=== PATIENT | female | born 1930 | race Caucasian/White ===

== ENCOUNTER → 2016-08-25 | Outpatient (CLI) | payer MEDICARE ==
[~2016-08-25] MED LIST: 50% DEXTRO25 GM/50 M IV; AMLODIPINE BESYL5 MG PO; AMLODIPINE10 MG PO; ASPIRIN ADULT L81 M1 PO; ASPIRIN ADULT L81 M3 PO; ASPIRIN E.C.325 MG PO; ASPIRIN81 M1 PO; BACLOFEN10 MG PO; CARAFATE1 G1 PO; DUONEB 3 MG/3 ML3 M1 INH; DUONEB 3 MG/3 ML3 ML INH; FERROUS SULFAT325 M1 PO; IS; K + POTASSIUM20 MEQ PO; KLOR-CON M2020 MEQ PO; LEVOFLOXACIN500 MG PO; LISINOPRIL5 MG PO; METFORMIN HYDR500 M1 PO; METFORMIN500 MG PO; MUCINEX600 MG PO; Metformin Hydr500 MG PO; NOVOLIN R100 U/ML SC; NS IV; PAXIL10 MG PO; PLAVIX75 MG PO; PRAVACHOL40 MG PO; PROTONIX40 MG PO; ROBITUSSIN5 ML PO; SIMVASTATIN10 MG PO; SIMVASTATIN40 MG PO; TENORMIN25 MG PO; TYLENOL500 MG PO; TYLENOL650 M1 PO; VOLTAREN1% TP; ZETIA10 MG PO; ZOCOR40 MG PO
== END | disposition home or self-care (01) ==
LOC: RAD 17:07
DX: R06.02 Shortness of breath (principal); R05 Cough; I10 Essential (primary) hypertension

== ENCOUNTER → 2017-09-15 | Outpatient (CLI) | payer MEDICARE ==
[~2017-09-15] MED LIST changes: +NORVASC5 MG PO; +PLAVIX75 M1 PO; +PRILOSEC20 M1 PO
--- NOTE | ~2017-09-15 | ST ---
[place], [place] EXERCISE STRESS TEST REPORT [id number] UN[facility] #: [id number] ROOM: DOCTOR: MAXIME VALERIO MD BIRTHDATE: [birth year] DOS: 09/15/2017 REFERRED BY: Dr. Aubrie Velez. INDICATIONS: Chest discomfort. PROCEDURE: The patient was given a rapid infusion of regadenoson 0.4 mg intravenously followed by a saline flush. She had shortness of breath and right chest discomfort, all of which resolved spontaneously. She had a normal heart rate increased from 62 at rest to 83 post-infusion. No diagnostic ST or T-wave changes were seen. Forty seconds after the infusion of regadenoson, she was given radionuclide intravenously. IMPRESSION: 1. Well tolerated infusion of regadenoson. 2. Radionuclide administered. Please see the separate imaging report for further details of the patient's stress test results. MAXIME VALERIO MD CM:STRESS:EXERCISE STRESS TEST REPORT [id number] 1202 MAXIME VALERIO MD
== END | disposition home or self-care (01) ==
LOC: CARD 02:04
DX: I20.8 Other forms of angina pectoris (principal)

== ENCOUNTER → 2017-09-19 | Outpatient (CLI) | payer MEDICARE | END | disposition home or self-care (01) | LOC: MAMMO 09-05 16:40 | DX: Z12.31 Encounter for screening mammogram for malignant neoplasm of breast (principal) ==

== ENCOUNTER → 2017-11-02 | Outpatient (CLI) | payer MEDICARE | END | disposition home or self-care (01) | LOC: CT 13:34 | DX: S09.90XA Unspecified injury of head, initial encounter (principal); W19.XXXA Unspecified fall, initial encounter; X58.XXXA Exposure to other specified factors, initial encounter; Y93.89 Activity, other specified; Y92.89 Other specified places as the place of occurrence of the external cause; Y99.8 Other external cause status ==

== ENCOUNTER 2017-11-09 13:56 | Inpatient (IN) | payer MEDICARE ==
[~2017-11-09] VITALS: Ht 144.8 cm; Wt 52.8 kg
[~2017-11-09 13:56] MED LIST changes: -BACLOFEN10 MG PO; +BACLOFEN20 M1 PO
[2017-11-09 13:57] VITALS: BP 166/80
[2017-11-09 14:36] LABS: BASO % 0.4 % (0.0-1.0); EOS % 0.1 % (1.0-4.0); HEMATOCRIT 41.7 % (37.0-47.0); HEMOGLOBIN 13.4 g/dl (12.0-16.0); LYMPH # 1.1 10*3/uL (1.3-4.4); MEAN CELL VOLUME 87.8 fl (81.0-99.0); MEAN CORPUSCULAR HGB 28.2 pg (27.0-31.0); MEAN CORPUSCULAR HGB CONC 32.1 g/dl (33.0-37.0); MEAN PLATELET VOLUME 10.3 fl (9.6-12.3); MONO # 0.3 10*3/uL (0.1-1.0); NEUT # 5.3 10*3/uL (2.3-7.9); NEUT % 78.9 % (47.0-73.0); PLATELET COUNT AUTOMATED 355 10*3/uL (130-400); RED BLOOD COUNT 4.75 10*6/uL (4.10-5.10); RED CELL DISTRI WIDTH 12.7 % (0-14.5); WHITE BLOOD COUNT 6.7 10*3/uL (4.8-10.8)
[2017-11-09 14:45] LABS: ACT PARTIAL THROMBO TIME 21.1 SECONDS (20.8-31.5); INTERNATIONAL NORM RATIO 0.9 (2.0-3.5)
[2017-11-09 14:52] LABS: ALBUMIN 3.4 gm/dl (3.1-4.5); ALKALINE PHOSPHATASE 83 U/L (45-117); BUN 12 mg/dl (7-24); CHLORIDE 104 mmol/L (98-107); CREATININE 1.01 mg/dL (0.55-1.02); LIPASE 201 U/L (73-393); POTASSIUM 3.5 mmol/L (3.5-5.1); SGOT/AST 20 IU/L (3-35); SGPT/ALT 16 U/L (12-78); SODIUM 139 mmol/L (136-145); TOTAL PROTEIN 8.2 gm/dL (6.4-8.2)
[2017-11-09 14:53] LABS: TROPONIN I < 0.015 ng/ml (<0.045)
[2017-11-09 16:00] VITALS: BP 136/57
[2017-11-09 20:00] VITALS: BP 121/57
[2017-11-10] VITALS: BP 102/48
[2017-11-10 06:26] LABS: BASO % 0.7 % (0.0-1.0); EOS # 0.1 10*3/uL (0.0-0.4); EOS % 1.8 % (1.0-4.0); HEMATOCRIT 37.2 % (37.0-47.0); HEMOGLOBIN 11.5 g/dl (12.0-16.0); LYMPH # 1.9 10*3/uL (1.3-4.4); LYMPH % 33.8 % (27.0-41.0); MEAN CELL VOLUME 90.7 fl (81.0-99.0); MEAN CORPUSCULAR HGB CONC 30.9 g/dl (33.0-37.0); MEAN PLATELET VOLUME 10.3 fl (9.6-12.3); MONO # 0.5 10*3/uL (0.1-1.0); MONO % 8.1 % (3.0-9.0); NEUT # 3.1 10*3/uL (2.3-7.9); NEUT % 55.2 % (47.0-73.0); PLATELET COUNT AUTOMATED 308 10*3/uL (130-400); RED CELL DISTRI WIDTH 12.8 % (0-14.5); WHITE BLOOD COUNT 5.5 10*3/uL (4.8-10.8)
[2017-11-10 07:00] LABS: BUN 9 mg/dl (7-24); CHLORIDE 109 mmol/L (98-107); CHOLESTEROL 130 mg/dL (<200); CREATININE 0.86 mg/dL (0.55-1.02); HDL CHOLESTEROL 34 mg/dl (40-60); LDL CHOLESTEROL 66 mg/dL (9-159); PHOSPHOROUS 2.2 mg/dL (2.5-4.9); POTASSIUM 3.4 mmol/L (3.5-5.1); SODIUM 143 mmol/L (136-145); TRIGLYCERIDES 151 mg/dl (<150); VLDL CHOLESTEROL 30 mg/dL (6-40)
[2017-11-10 07:06] LABS: THYROID STIM HORMONE (HS) 0.914 uIU/ml (0.358-4.75)
[2017-11-10 07:52] LABS: VITAMIN D, 25-HYDROXY 27.4 ng/mL (30-100)
[2017-11-10 08:00] VITALS: BP 149/60; BP 99/66
[2017-11-10] MEDS ORDERED: NORVASC5 MG PO (08:13)
[2017-11-10] MEDS ORDERED: SIMVASTATIN40 MG PO (08:14)
[2017-11-10 13:00] VITALS: BP 135/50
== END 2017-11-10 15:32 | disposition home or self-care (01) | DRG 392 ==
LOC: ED 13:56 → EDHOLD 15:09 → 5E 15:09
PROVIDERS: Emergency Medicine; Student in an Organized Health Care Education/Training Program
DX: K52.9 Noninfective gastroenteritis and colitis, unspecified (principal); E11.65 Type 2 diabetes mellitus with hyperglycemia; I69.359 Hemiplegia and hemiparesis following cerebral infarction affecting unspecified side; R26.2 Difficulty in walking, not elsewhere classified; D72.810 Lymphocytopenia; I10 Essential (primary) hypertension; E78.5 Hyperlipidemia, unspecified; Z79.899 Other long term (current) drug therapy; Z88.5 Allergy status to narcotic agent; Z88.8 Allergy status to other drugs, medicaments and biological substances; Z91.041 Radiographic dye allergy status; Z91.040 Latex allergy status; Z90.49 Acquired absence of other specified parts of digestive tract; Z82.49 Family history of ischemic heart disease and other diseases of the circulatory system; Z82.3 Family history of stroke; Z80.9 Family history of malignant neoplasm, unspecified; Z87.19 Personal history of other diseases of the digestive system

== ENCOUNTER 2018-01-07 10:29 | Emergency (ER) | payer MEDICARE ==
[~2018-01-07] VITALS: Ht 144.7 cm; Wt 49.9 kg
[2018-01-07] MEDS ORDERED: METFORMIN750 MG PO (10:36)
[2018-01-07 10:55] LABS: BASO # 0.1 10*3/uL (0.0-0.1); BASO % 0.7 % (0.0-1.0); EOS # 0.1 10*3/uL (0.0-0.4); EOS % 1.7 % (1.0-4.0); HEMATOCRIT 41.8 % (37.0-47.0); LYMPH # 3.4 10*3/uL (1.3-4.4); LYMPH % 41.5 % (27.0-41.0); MEAN CELL VOLUME 88.2 fl (81.0-99.0); MEAN CORPUSCULAR HGB 27.4 pg (27.0-31.0); MEAN CORPUSCULAR HGB CONC 31.1 g/dl (33.0-37.0); MEAN PLATELET VOLUME 10.8 fl (9.6-12.3); MONO # 0.4 10*3/uL (0.1-1.0); MONO % 5.3 % (3.0-9.0); NEUT # 4.1 10*3/uL (2.3-7.9); NEUT % 50.7 % (47.0-73.0); PLATELET COUNT AUTOMATED 276 10*3/uL (130-400); RED BLOOD COUNT 4.74 10*6/uL (4.10-5.10); RED CELL DISTRI WIDTH 13.4 % (0-14.5); WHITE BLOOD COUNT 8.2 10*3/uL (4.8-10.8)
[2018-01-07 11:03] LABS: ACT PARTIAL THROMBO TIME 24.1 SECONDS (20.8-31.5); INTERNATIONAL NORM RATIO 0.9 (2.0-3.5)
[2018-01-07 11:11] LABS: ALBUMIN 3.7 gm/dl (3.1-4.5); ALKALINE PHOSPHATASE 74 U/L (45-117); BUN 11 mg/dl (7-24); CHLORIDE 105 mmol/L (98-107); CREATININE 0.97 mg/dL (0.55-1.02); POTASSIUM 4.1 mmol/L (3.5-5.1); SGOT/AST 24 IU/L (3-35); SGPT/ALT 18 U/L (12-78); SODIUM 140 mmol/L (136-145); TOTAL PROTEIN 8.3 gm/dL (6.4-8.2); TROPONIN I < 0.015 ng/ml (<0.045)
[2018-01-07 11:39] LABS: BILIRUBIN NEGATIVE (NEGATIVE); BLOOD NEGATIVE (NEGATIVE); CLARITY CLEAR (CLEAR); COLOR YELLOW (YELLOW); GLUCOSE NEGATIVE (NEGATIVE); KETONE NEGATIVE (NEGATIVE); LEUKO ESTERASE NEGATIVE (NEGATIVE); NITRITE NEGATIVE (NEGATIVE); PH 7.5 (5.0-9.0); SPECIFIC GRAVITY 1.015 (1.005-1.030); UROBILINOGEN 0.2 E.U./dl (0.2-1.0)
== END 2018-01-07 12:35 | disposition home or self-care (01) ==
LOC: ED 10:29
PROVIDERS: Emergency Medicine
DX: R53.1 Weakness (principal); I10 Essential (primary) hypertension; E11.9 Type 2 diabetes mellitus without complications; Z91.040 Latex allergy status; Z91.041 Radiographic dye allergy status; Z88.6 Allergy status to analgesic agent; Z88.8 Allergy status to other drugs, medicaments and biological substances; Z79.899 Other long term (current) drug therapy; Z86.73 Personal history of transient ischemic attack (TIA), and cerebral infarction without residual deficits; Z90.49 Acquired absence of other specified parts of digestive tract

== ENCOUNTER 2018-02-06 15:56 | Emergency (ER) | payer MEDICARE ==
[~2018-02-06] VITALS: Ht 1 cm; Wt 54.4 kg
[~2018-02-06 15:56] MED LIST changes: +METFORMIN750 MG PO
[2018-02-06 16:51] LABS: BASO % 0.6 % (0.0-1.0); EOS # 0.1 10*3/uL (0.0-0.4); EOS % 1.4 % (1.0-4.0); HEMATOCRIT 44.3 % (37.0-47.0); HEMOGLOBIN 13.4 g/dl (12.0-16.0); LYMPH # 2.7 10*3/uL (1.3-4.4); LYMPH % 38.7 % (27.0-41.0); MEAN CELL VOLUME 88.6 fl (81.0-99.0); MEAN CORPUSCULAR HGB 26.8 pg (27.0-31.0); MEAN CORPUSCULAR HGB CONC 30.2 g/dl (33.0-37.0); MEAN PLATELET VOLUME 10.8 fl (9.6-12.3); MONO # 0.5 10*3/uL (0.1-1.0); MONO % 6.8 % (3.0-9.0); NEUT # 3.7 10*3/uL (2.3-7.9); NEUT % 52.4 % (47.0-73.0); PLATELET COUNT AUTOMATED 291 10*3/uL (130-400); RED CELL DISTRI WIDTH 14.3 % (0-14.5)
[2018-02-06 17:00] LABS: ACT PARTIAL THROMBO TIME 23.5 SECONDS (20.8-31.5); INTERNATIONAL NORM RATIO 0.9 (2.0-3.5)
[2018-02-06 17:07] LABS: ALBUMIN 3.7 gm/dl (3.1-4.5); ALKALINE PHOSPHATASE 76 U/L (45-117); BUN 12 mg/dl (7-24); CHLORIDE 109 mmol/L (98-107); CREATININE 0.89 mg/dL (0.55-1.02); POTASSIUM 4.4 mmol/L (3.5-5.1); SGOT/AST 19 IU/L (3-35); SGPT/ALT 16 U/L (12-78); SODIUM 143 mmol/L (136-145); TOTAL PROTEIN 8.2 gm/dL (6.4-8.2)
[2018-02-06 17:10] LABS: TROPONIN I < 0.015 ng/ml (<0.045)
[2018-02-06 17:41] LABS: BILIRUBIN NEGATIVE (NEGATIVE); BLOOD NEGATIVE (NEGATIVE); CLARITY CLEAR (CLEAR); COLOR YELLOW (YELLOW); GLUCOSE NEGATIVE (NEGATIVE); KETONE NEGATIVE (NEGATIVE); LEUKO ESTERASE 2+ (NEGATIVE); NITRITE NEGATIVE (NEGATIVE); PH 6.5 (5.0-9.0); SPECIFIC GRAVITY 1.015 (1.005-1.030)
== END 2018-02-06 20:05 | disposition short-term general hospital (02) ==
LOC: ED 15:56
PROVIDERS: Emergency Medicine
DX: I63.9 Cerebral infarction, unspecified (principal); R29.810 Facial weakness; R42 Dizziness and giddiness; I10 Essential (primary) hypertension; E11.9 Type 2 diabetes mellitus without complications; E78.5 Hyperlipidemia, unspecified; Z91.040 Latex allergy status; Z88.6 Allergy status to analgesic agent; Z88.8 Allergy status to other drugs, medicaments and biological substances; Z79.899 Other long term (current) drug therapy; Z86.73 Personal history of transient ischemic attack (TIA), and cerebral infarction without residual deficits; Z86.718 Personal history of other venous thrombosis and embolism

== ENCOUNTER → 2018-02-27 | Outpatient (CLI) | payer MEDICARE ==
--- NOTE | ~2018-02-27 | EEG ---
[place], [place] ELECTROENCEPHALOGRAM REPORT NAME: KEN DESOUZA UNIT #: [id number] ROOM: DOCTOR: JACOB BLAND MD, JR DOS: 02/27/2018 FINDINGS: This 87-year-old woman on Zestril, Plavix, baclofen, atenolol, Carafate, metformin, Lipitor, vitamin D and fish oil displayed the following underlying rhythms: slightly disorganized, slightly asynchronous, 8 Hz, 20-30 microvolt alpha rhythms in both posterior regions 16 Hz, 10 microvolt beta rhythms were noted in both precentral regions. There was symmetrical attenuation of the posterior alpha rhythms with eye opening. Hyperventilation was not performed. There was no significant driving to photic stimulation. The patient did become drowsy, progressing uneventfully through stage I of somnolence. Throughout this recording, there were no focal abnormalities or epileptiform discharges. IMPRESSION: Normal awake and drowsy EEG. Clinical correlation was highly advised. JACOB BLAND MD CM:EEG:ELECTROENCEPHALOGRAM REPORT [id number] 1609 JACOB BLAND MD, JR
== END | disposition home or self-care (01) ==
LOC: CARD 10:39 → CP 12:00 → CARD 02-28 09:30
DX: I08.1 Rheumatic disorders of both mitral and tricuspid valves (principal); Z79.899 Other long term (current) drug therapy

== ENCOUNTER 2018-06-24 11:02 | Emergency (ER) | payer MEDICARE ==
--- NOTE | ~2018-06-24 | EKG ---
[place], [place] ELECTROCARDIOGRAM REPORT NAME: KEN DESOUZA UNIT #: [id number] ROOM: DOCTOR: AIDEN DRAFT REPORT BIRTHDATE: [birth year] [facility] Test Date: 2018-06-24 Test Time: 11:44:49 Pat Name: KEN DESOUZA Department: Room: Gender: F Arcade Attendant: : 1930 Requested By: AMAYA ROSENBAUM Order Number: [id number] Reading MD: Measurements Intervals [place] Rate: 83 P: 63 SC: 166 QRS: 27 QRSD: 86 T: 56 QT: 376 QTc: 442 Interpretive Statements Sinus rhythm No previous ECG available for comparison CM:EKGRPT:ELECTROCARDIOGRAM REPORT [id number] 0846 AMAYA WOLFE DRAFT REPORT AMAYA ROSENBAUM MD
[2018-06-24 11:56] LABS: BASO # 0.1 10*3/uL (0.0-0.1); BASO % 0.8 % (0.0-1.0); EOS # 0.1 10*3/uL (0.0-0.4); EOS % 1.1 % (1.0-4.0); HEMATOCRIT 43.5 % (37.0-47.0); HEMOGLOBIN 13.9 g/dl (12.0-16.0); LYMPH # 2.4 10*3/uL (1.3-4.4); LYMPH % 29.9 % (27.0-41.0); MEAN CELL VOLUME 88.4 fl (81.0-99.0); MEAN CORPUSCULAR HGB 28.3 pg (27.0-31.0); MEAN PLATELET VOLUME 10.3 fl (9.6-12.3); MONO # 0.6 10*3/uL (0.1-1.0); MONO % 7.9 % (3.0-9.0); NEUT # 4.8 10*3/uL (2.3-7.9); NEUT % 60.2 % (47.0-73.0); PLATELET COUNT AUTOMATED 302 10*3/uL (130-400); RED BLOOD COUNT 4.92 10*6/uL (4.10-5.10); RED CELL DISTRI WIDTH 13.9 % (0-14.5)
[2018-06-24 12:05] LABS: ACT PARTIAL THROMBO TIME 23.2 SECONDS (20.8-31.5); INTERNATIONAL NORM RATIO 0.9 (2.0-3.5)
[2018-06-24 12:14] LABS: BUN 14 mg/dl (7-24); CHLORIDE 104 mmol/L (98-107); CREATININE 0.92 mg/dL (0.55-1.02); POTASSIUM 4.2 mmol/L (3.5-5.1); SODIUM 137 mmol/L (136-145)
[2018-06-24 12:15] LABS: TROPONIN I < 0.015 ng/ml (<0.045)
== END 2018-06-24 12:40 | disposition home or self-care (01) ==
LOC: ED 11:02
PROVIDERS: Emergency Medicine
DX: R53.1 Weakness (principal); R25.2 Cramp and spasm; E78.5 Hyperlipidemia, unspecified; I10 Essential (primary) hypertension; E11.9 Type 2 diabetes mellitus without complications; Z86.73 Personal history of transient ischemic attack (TIA), and cerebral infarction without residual deficits; Z90.49 Acquired absence of other specified parts of digestive tract; Z79.84 Long term (current) use of oral hypoglycemic drugs; Z79.899 Other long term (current) drug therapy; Z88.8 Allergy status to other drugs, medicaments and biological substances; Z88.5 Allergy status to narcotic agent; Z91.041 Radiographic dye allergy status; Z91.040 Latex allergy status

== ENCOUNTER 2018-07-24 21:41 | Inpatient (IN) | payer MEDICARE ==
[~2018-07-24] VITALS: Ht 149.8 cm; Wt 50.0 kg
--- NOTE | ~2018-07-24 | PROC NOTE ---
[place], [place] PROCEDURE NOTE NAME: KEN DESOUZA UNIT #: [id number] ROOM: 524 DOCTOR: RANDY PAEZ MD BIRTHDATE: [birth year] DOS: 07/26/2018 PREOPERATIVE DIAGNOSIS: Lower GI bleed. POSTOPERATIVE DIAGNOSIS: Sigmoid diverticulosis. PROCEDURE: Colonoscopy. ENDOSCOPIST: Randy Paez MD SENIOR BUSINESS OBJECTS DEVELOPER: DOLORES. ANESTHESIA: MAC. INDICATIONS: This is an 87-year-old lady who was admitted with lower GI bleed. She is here for a colonoscopy. The procedure and its complications were explained to the patient in detail preoperatively. Complications that were discussed included but were not limited to bleeding, missed lesions, colon perforation, and prolonged pain. She agreed to proceed. DESCRIPTION OF PROCEDURE: After identifying the patient, the patient was brought to the endoscopy suite and placed in the left lateral position. After IV sedation was administered by the anesthesia team, a time-out procedure was called. A digital rectal exam was performed, which showed some old blood on the examining finger. No active bleeding was seen. Adult colonoscope was now introduced into the anal canal and advanced sequentially into the rectum, sigmoid colon, descending colon, transverse colon and ascending colon up to the cecum. Upon reaching the cecum, the scope was withdrawn. There was found to be old blood and stool mixed in the entirety of the colon, but no active bleeding or source of bleeding that could be visualized. The mucosa was completely normal. There was sigmoid diverticulosis without any active bleeding that was identified in the region of the sigmoid colon. The scope was then withdrawn. There was found to be nonbleeding internal hemorrhoids that were visualized on retroflexion of the scope in the rectum. The scope was then withdrawn and the patient was brought back to the recovery room in stable fashion. The patient will be monitored closely for further bleeding and if needed, a bleeding scan will be ordered in order to see if there was any bleeding from the small intestine, which seems to be the most likely source at this point. These findings were discussed with the patient's in the recovery room. [place], [place] PROCEDURE NOTE NAME: KEN DESOUZA UNIT #: [id number] ROOM: 524 DOCTOR: RANDY PAEZ MD BIRTHDATE: [birth year] Randy Paez MD CM:EVELYN:PROCEDURE NOTE [id number] RANDY PAEZ MD
[2018-07-24 22:02] VITALS: BP 139/59
[2018-07-24 22:30] LABS: BASO % 0.5 % (0.0-1.0); EOS # 0.2 10*3/uL (0.0-0.4); HEMATOCRIT 32.2 % (37.0-47.0); HEMOGLOBIN 10.3 g/dl (12.0-16.0); LYMPH # 2.5 10*3/uL (1.3-4.4); LYMPH % 33.5 % (27.0-41.0); MEAN CELL VOLUME 91.2 fl (81.0-99.0); MEAN CORPUSCULAR HGB 29.2 pg (27.0-31.0); MEAN PLATELET VOLUME 10.9 fl (9.6-12.3); MONO # 0.5 10*3/uL (0.1-1.0); NEUT # 4.2 10*3/uL (2.3-7.9); NEUT % 56.7 % (47.0-73.0); PLATELET COUNT AUTOMATED 231 10*3/uL (130-400); RED BLOOD COUNT 3.53 10*6/uL (4.10-5.10); RED CELL DISTRI WIDTH 13.7 % (0-14.5); WHITE BLOOD COUNT 7.4 10*3/uL (4.8-10.8)
[2018-07-24 22:43] LABS: ACT PARTIAL THROMBO TIME 22.7 SECONDS (20.8-31.5)
[2018-07-24 22:44] LABS: ALBUMIN 3.1 gm/dl (3.1-4.5); CREATININE 1.22 mg/dL (0.55-1.02); POTASSIUM 4.1 mmol/L (3.5-5.1); TOTAL PROTEIN 6.7 gm/dL (6.4-8.2)
[2018-07-25 00:13] VITALS: BP 166/65
[2018-07-25] MEDS ORDERED: ATORVASTATIN CA20 M1 PO (03:27)
[2018-07-25] MEDS ORDERED: CARVEDILOL12.5 MG PO (03:27)
[2018-07-25] MEDS ORDERED: FISH OIL 1,0001 EAC3 PO ×2 (03:28→14:32)
[2018-07-25 03:34] LABS: BILIRUBIN NEGATIVE (NEGATIVE); BLOOD NEGATIVE (NEGATIVE); CLARITY SL CLOUDY (CLEAR); COLOR YELLOW (YELLOW); GLUCOSE NEGATIVE (NEGATIVE); KETONE TRACE (NEGATIVE); LEUKO ESTERASE 1+ (NEGATIVE); NITRITE NEGATIVE (NEGATIVE); SPECIFIC GRAVITY >= 1.030 (1.005-1.030); UROBILINOGEN 0.2 E.U./dl (0.2-1.0)
[2018-07-25 03:45] LABS: EPITHELIAL CELLS 30-35
[2018-07-25 03:46] LABS: BACTERIA TRACE; WBC 16-20 wbc/hpf (0-5)
[2018-07-25 04:00] VITALS: BP 130/60
[2018-07-25 07:10] LABS: BASO % 0.5 % (0.0-1.0); EOS # 0.1 10*3/uL (0.0-0.4); EOS % 1.5 % (1.0-4.0); HEMATOCRIT 29.4 % (37.0-47.0); HEMOGLOBIN 9.4 g/dl (12.0-16.0); LYMPH # 2.1 10*3/uL (1.3-4.4); LYMPH % 35.8 % (27.0-41.0); MEAN CELL VOLUME 90.2 fl (81.0-99.0); MEAN CORPUSCULAR HGB 28.8 pg (27.0-31.0); MEAN PLATELET VOLUME 10.6 fl (9.6-12.3); MONO # 0.4 10*3/uL (0.1-1.0); MONO % 6.6 % (3.0-9.0); NEUT # 3.3 10*3/uL (2.3-7.9); NEUT % 55.4 % (47.0-73.0); PLATELET COUNT AUTOMATED 220 10*3/uL (130-400); RED BLOOD COUNT 3.26 10*6/uL (4.10-5.10); RED CELL DISTRI WIDTH 13.5 % (0-14.5)
[2018-07-25 07:46] LABS: ALBUMIN 2.8 gm/dl (3.1-4.5); BUN 20 mg/dl (7-24); CHLORIDE 107 mmol/L (98-107); CHOLESTEROL 122 mg/dL (<200); CREATININE 0.85 mg/dL (0.55-1.02); PHOSPHOROUS 3.1 mg/dL (2.5-4.9); POTASSIUM 3.9 mmol/L (3.5-5.1); SGOT/AST 14 IU/L (3-35); SGPT/ALT 10 U/L (12-78); SODIUM 138 mmol/L (136-145); TRIGLYCERIDES 103 mg/dl (<150); VLDL CHOLESTEROL 21 mg/dL (6-40)
[2018-07-25 07:53] LABS: ALKALINE PHOSPHATASE 61 U/L (45-117); FREE T4 1.13 ng/dl (0.76-1.46); HDL CHOLESTEROL 37 mg/dl (40-60); LDL CHOLESTEROL 64 mg/dL (9-159); TOTAL PROTEIN 6.4 gm/dL (6.4-8.2)
[2018-07-25 08:00] VITALS: BP 172/88
[2018-07-25 08:42] LABS: VITAMIN D, 25-HYDROXY 71.8 ng/mL (30-100)
[2018-07-25 10:45] VITALS: BP 150/80
[2018-07-25 12:49] LABS: BASO % 0.6 % (0.0-1.0); EOS # 0.1 10*3/uL (0.0-0.4); EOS % 1.9 % (1.0-4.0); LYMPH # 2.5 10*3/uL (1.3-4.4); LYMPH % 39.7 % (27.0-41.0); MEAN CELL VOLUME 90.7 fl (81.0-99.0); MEAN CORPUSCULAR HGB 28.3 pg (27.0-31.0); MEAN CORPUSCULAR HGB CONC 31.3 g/dl (33.0-37.0); MEAN PLATELET VOLUME 10.9 fl (9.6-12.3); MONO # 0.5 10*3/uL (0.1-1.0); MONO % 7.5 % (3.0-9.0); NEUT # 3.1 10*3/uL (2.3-7.9); PLATELET COUNT AUTOMATED 226 10*3/uL (130-400); RED BLOOD COUNT 3.53 10*6/uL (4.10-5.10); RED CELL DISTRI WIDTH 13.4 % (0-14.5); WHITE BLOOD COUNT 6.2 10*3/uL (4.8-10.8)
[2018-07-25] MEDS ORDERED: METFORMIN ER500 MG PO (14:24)
[2018-07-25] MEDS ORDERED: VITAMIN E200 UNI1 PO (14:24)
[2018-07-25] MEDS ORDERED: LIPITOR20 MG PO (14:25)
[2018-07-25 16:00] VITALS: BP 145/86
[2018-07-25 20:00] VITALS: BP 134/56
[2018-07-26] VITALS (10 sets, daily range): BP systolic 113–180; BP diastolic 47–80
[2018-07-26 10:08] LABS: BASO % 0.7 % (0.0-1.0); EOS # 0.1 10*3/uL (0.0-0.4); EOS % 1.8 % (1.0-4.0); HEMATOCRIT 30.8 % (37.0-47.0); HEMOGLOBIN 9.9 g/dl (12.0-16.0); LYMPH # 2.1 10*3/uL (1.3-4.4); LYMPH % 34.1 % (27.0-41.0); MEAN CELL VOLUME 90.1 fl (81.0-99.0); MEAN CORPUSCULAR HGB 28.9 pg (27.0-31.0); MEAN CORPUSCULAR HGB CONC 32.1 g/dl (33.0-37.0); MONO # 0.5 10*3/uL (0.1-1.0); MONO % 7.5 % (3.0-9.0); NEUT # 3.4 10*3/uL (2.3-7.9); NEUT % 55.6 % (47.0-73.0); PLATELET COUNT AUTOMATED 227 10*3/uL (130-400); RED BLOOD COUNT 3.42 10*6/uL (4.10-5.10); RED CELL DISTRI WIDTH 13.6 % (0-14.5)
[2018-07-26 10:15] LABS: ALKALINE PHOSPHATASE 62 U/L (45-117); BUN 12 mg/dl (7-24); CHLORIDE 108 mmol/L (98-107); POTASSIUM 3.7 mmol/L (3.5-5.1); SGOT/AST 17 IU/L (3-35); SGPT/ALT 11 U/L (12-78); SODIUM 139 mmol/L (136-145); TOTAL PROTEIN 6.5 gm/dL (6.4-8.2)
[2018-07-27] VITALS: BP 157/61
[2018-07-27 06:55] LABS: BASO % 0.6 % (0.0-1.0); EOS # 0.1 10*3/uL (0.0-0.4); EOS % 2.1 % (1.0-4.0); HEMOGLOBIN 10.1 g/dl (12.0-16.0); LYMPH # 1.8 10*3/uL (1.3-4.4); LYMPH % 28.6 % (27.0-41.0); MEAN CELL VOLUME 88.8 fl (81.0-99.0); MEAN CORPUSCULAR HGB 28.9 pg (27.0-31.0); MEAN CORPUSCULAR HGB CONC 32.6 g/dl (33.0-37.0); MEAN PLATELET VOLUME 10.7 fl (9.6-12.3); MONO # 0.4 10*3/uL (0.1-1.0); MONO % 7.1 % (3.0-9.0); NEUT # 3.8 10*3/uL (2.3-7.9); NEUT % 61.3 % (47.0-73.0); PLATELET COUNT AUTOMATED 260 10*3/uL (130-400); RED BLOOD COUNT 3.49 10*6/uL (4.10-5.10); RED CELL DISTRI WIDTH 13.6 % (0-14.5); WHITE BLOOD COUNT 6.2 10*3/uL (4.8-10.8)
[2018-07-27 07:09] LABS: BUN 10 mg/dl (7-24); CHLORIDE 110 mmol/L (98-107); CREATININE 0.83 mg/dL (0.55-1.02); POTASSIUM 3.6 mmol/L (3.5-5.1); SODIUM 142 mmol/L (136-145)
[2018-07-27 12:00] VITALS: BP 152/61
[2018-07-27] MEDS ORDERED: AMLODIPINE BESYL5 MG PO (13:23)
== END 2018-07-27 14:00 | disposition home or self-care (01) | DRG 377 ==
LOC: ED 21:41 → EDHOLD 23:01 → 5E 23:01
PROVIDERS: Internal Medicine; Physician Assistant
PROC: 0DJD8ZZ Inspection of Lower Intestinal Tract, Via Natural or Artificial Opening Endoscopic (ICD-10-PCS; principal; 2018-07-26)
DX: K57.31 Diverticulosis of large intestine without perforation or abscess with bleeding (principal); N17.0 Acute kidney failure with tubular necrosis; I69.351 Hemiplegia and hemiparesis following cerebral infarction affecting right dominant side; E44.0 Moderate protein-calorie malnutrition; D62 Acute posthemorrhagic anemia; K64.8 Other hemorrhoids; R53.1 Weakness; I10 Essential (primary) hypertension; E78.2 Mixed hyperlipidemia; E11.65 Type 2 diabetes mellitus with hyperglycemia; Z91.040 Latex allergy status; Z88.5 Allergy status to narcotic agent; Z91.048 Other nonmedicinal substance allergy status; Z88.8 Allergy status to other drugs, medicaments and biological substances; Z90.49 Acquired absence of other specified parts of digestive tract; Z82.3 Family history of stroke; Z80.9 Family history of malignant neoplasm, unspecified; Z82.49 Family history of ischemic heart disease and other diseases of the circulatory system; Z79.84 Long term (current) use of oral hypoglycemic drugs; Z79.02 Long term (current) use of antithrombotics/antiplatelets; Z79.899 Other long term (current) drug therapy; Z68.22 Body mass index [BMI] 22.0-22.9, adult

== ENCOUNTER → 2018-08-24 | Outpatient (CLI) | payer MEDICARE ==
[~2018-08-24] MED LIST changes: +AGGRENOX 25/2001 EA PO; +ASPIRIN ADULT L81 M2 PO; +ATORVASTATIN CA20 M1 PO; +CARVEDILOL12.5 MG PO; +COREG12.5 M1 PO; +Carafate1 GM PO; +FISH OIL 1,0001 EAC3 PO; +HYDROCODONE-AC1 EAC1 PO; +IMDUR SA60 M1 PO; +IRON325 M1 PO; +LIPITOR20 MG PO; +LOPRESSOR25 MG PO; +METFORMIN ER500 MG PO; +METOPROLOL TART50 M1 PO; +NYSTOP60 GM T; +VITAMIN D5000 UNI1 PO; +VITAMIN E200 UNI1 PO; +ZOFRAN4 MG PO
[2018-08-24 17:02] LABS: HEMATOCRIT 33.8 % (37.0-47.0); HEMOGLOBIN 10.3 g/dl (12.0-16.0); MEAN CELL VOLUME 89.2 fl (81.0-99.0); MEAN CORPUSCULAR HGB 27.2 pg (27.0-31.0); MEAN CORPUSCULAR HGB CONC 30.5 g/dl (33.0-37.0); RED BLOOD COUNT 3.79 10*6/uL (4.10-5.10); RED CELL DISTRI WIDTH 13.7 % (0-14.5); WHITE BLOOD COUNT 5.9 10*3/uL (4.8-10.8)
[2018-08-24 17:22] LABS: ALBUMIN 3.2 gm/dl (3.1-4.5); ALKALINE PHOSPHATASE 74 U/L (45-117); BUN 17 mg/dl (7-24); CHLORIDE 108 mmol/L (98-107); CHOLESTEROL 137 mg/dL (<200); CREATININE 0.95 mg/dL (0.55-1.02); HDL CHOLESTEROL 45 mg/dl (40-60); LDL CHOLESTEROL 67 mg/dL (9-159); POTASSIUM 3.6 mmol/L (3.5-5.1); SGOT/AST 15 IU/L (3-35); SGPT/ALT 14 U/L (12-78); SODIUM 142 mmol/L (136-145); TOTAL PROTEIN 7.6 gm/dL (6.4-8.2); TRIGLYCERIDES 127 mg/dl (<150); VLDL CHOLESTEROL 25 mg/dL (6-40)
== END | disposition home or self-care (01) ==
LOC: LAB 16:22
PROVIDERS: Internal Medicine
DX: T79.7XXA Traumatic subcutaneous emphysema, initial encounter (principal); E11.9 Type 2 diabetes mellitus without complications; E55.9 Vitamin D deficiency, unspecified; D62 Acute posthemorrhagic anemia; X58.XXXA Exposure to other specified factors, initial encounter

== ENCOUNTER 2018-11-26 18:32 | Inpatient (IN) | payer MEDICARE ==
[~2018-11-26] VITALS: Ht 147.3 cm; Wt 46.5 kg
--- NOTE | ~2018-11-26 | EKG ---
[place], [place] ELECTROCARDIOGRAM REPORT NAME: KEN DESOUZA UNIT #: [id number] ROOM: 526 DOCTOR: AIDEN DRAFT REPORT BIRTHDATE: [birth year] [facility] Test Date: 2018-11-26 Test Time: 19:22:29 Pat Name: KEN DESOUZA Department: Room: 526 Gender: F Enologist: SS RESP : 1930 Requested By: ANABELLA RICHMOND Order Number: [id number] Reading MD: Javon Mancuso MD Measurements Intervals [place] Rate: 96 P: 49 HI: 169 QRS: 26 QRSD: 95 T: 47 QT: 376 QTc: 476 Interpretive Statements Sinus rhythm Baseline wander in lead(s) II,III,aVL,aVF,V1,V2 Compared to ECG 10/25/2018 17:26:57 ST (T wave) deviation no longer present Electronically Signed On 11-27-2018 8:00:13 PDT by Javon Mancuso MD CM:EKGRPT:ELECTROCARDIOGRAM REPORT [id number] ANABELLA CORBETT DRAFT REPORT ANABELLA RICHMOND DO
[~2018-11-26 18:32] MED LIST changes: -ASPIRIN ADULT L81 M2 PO; -HYDROCODONE-AC1 EAC1 PO; -IMDUR SA60 M1 PO; -LOPRESSOR25 MG PO; -METOPROLOL TART50 M1 PO; -NYSTOP60 GM T; -ZOFRAN4 MG PO
[2018-11-26 18:33] VITALS: BP 186/89
[2018-11-26 19:10] VITALS: BP 180/77
[2018-11-26 19:24] LABS: BASO # 0.1 10*3/uL (0.0-0.1); BASO % 0.7 % (0.0-1.0); EOS # 0.2 10*3/uL (0.0-0.4); EOS % 1.9 % (1.0-4.0); HEMATOCRIT 34.6 % (37.0-47.0); HEMOGLOBIN 10.7 g/dl (12.0-16.0); LYMPH # 2.5 10*3/uL (1.3-4.4); LYMPH % 29.1 % (27.0-41.0); MEAN CELL VOLUME 81.8 fl (81.0-99.0); MEAN CORPUSCULAR HGB 25.3 pg (27.0-31.0); MEAN CORPUSCULAR HGB CONC 30.9 g/dl (33.0-37.0); MEAN PLATELET VOLUME 11.1 fl (9.6-12.3); MONO # 0.6 10*3/uL (0.1-1.0); MONO % 7.4 % (3.0-9.0); NEUT # 5.1 10*3/uL (2.3-7.9); NEUT % 60.7 % (47.0-73.0); PLATELET COUNT AUTOMATED 348 10*3/uL (130-400); RED BLOOD COUNT 4.23 10*6/uL (4.10-5.10); RED CELL DISTRI WIDTH 16.2 % (0-14.5); WHITE BLOOD COUNT 8.4 10*3/uL (4.8-10.8)
[2018-11-26 19:35] VITALS: BP 144/72
[2018-11-26 19:42] LABS: ALBUMIN 3.3 gm/dl (3.1-4.5); ALKALINE PHOSPHATASE 82 U/L (45-117); BUN 16 mg/dl (7-24); CHLORIDE 104 mmol/L (98-107); CREATININE 0.99 mg/dL (0.55-1.02); SGOT/AST 18 IU/L (3-35); SGPT/ALT 14 U/L (12-78); SODIUM 139 mmol/L (136-145); TOTAL PROTEIN 7.8 gm/dL (6.4-8.2)
[2018-11-26 19:44] LABS: TROPONIN I < 0.015 ng/ml (<0.045)
[2018-11-26 19:49] LABS: ACT PARTIAL THROMBO TIME 23.5 SECONDS (20.8-31.5); INTERNATIONAL NORM RATIO 0.9 (2.0-3.5)
[2018-11-26 20:25] VITALS: BP 135/70
[2018-11-26 21:29] VITALS: BP 140/78
--- NOTE | 2018-11-26 22:00 | NUR ---
A 88, admitted to , under the services of SILVER Mcneill DO with a diagnosis of DIZZINESS, AMBULATORY DYSFUNCTION. Chief complaint is DIZZINESS. Patient arrived via bed from ER. Monitor applied. Initial assessment completed. Vital signs taken and recorded. SILVER MCNEILL DO notified of admission to the unit. Orders received. See assessment for past medical history, medications and allergies. Patient and/or family oriented to unit. [address] visitation policy reviewed. Clothing/patient valuable form completed. FEDERICO WRIGHT
[2018-11-27] VITALS: BP 143/53
[2018-11-27 06:35] LABS: BASO # 0.1 10*3/uL (0.0-0.1); BASO % 0.9 % (0.0-1.0); EOS # 0.1 10*3/uL (0.0-0.4); EOS % 1.9 % (1.0-4.0); HEMATOCRIT 29.8 % (37.0-47.0); LYMPH # 2.4 10*3/uL (1.3-4.4); MEAN CELL VOLUME 80.8 fl (81.0-99.0); MEAN CORPUSCULAR HGB 24.4 pg (27.0-31.0); MEAN CORPUSCULAR HGB CONC 30.2 g/dl (33.0-37.0); MEAN PLATELET VOLUME 11.2 fl (9.6-12.3); MONO # 0.5 10*3/uL (0.1-1.0); NEUT # 3.3 10*3/uL (2.3-7.9); PLATELET COUNT AUTOMATED 303 10*3/uL (130-400); RED BLOOD COUNT 3.69 10*6/uL (4.10-5.10); RED CELL DISTRI WIDTH 16.2 % (0-14.5); WHITE BLOOD COUNT 6.4 10*3/uL (4.8-10.8)
[2018-11-27 07:02] LABS: BUN 15 mg/dl (7-24); CHLORIDE 106 mmol/L (98-107); POTASSIUM 3.7 mmol/L (3.5-5.1); SODIUM 139 mmol/L (136-145)
--- NOTE | 2018-11-27 07:53 | NUR ---
PT OFF FLOOR FOR X-RAY AT THIS TIME.
--- NOTE | 2018-11-27 07:58 | NUR ---
PHYSICAL THERAPY Nursing screen received. PT orders also received. Thank you. Funmilayo Siegel,PT
[2018-11-27 08:00] VITALS: BP 130/41
--- NOTE | 2018-11-27 08:18 | NUR ---
Nursing screen and Occupational Therapy referral received. Thank you. Ayde Peacock OTR/l
--- NOTE | 2018-11-27 10:26 | NUR ---
Occupational Therapy evaluation completed on 5 with full eval to follow. Precautions include fall risk, late effect CVA,muscle weakness,poor balance, safety and xfers skills, high complexity level 46005 via chart review, testing and evaluation. Recommend OT per pOC and SNF to enable safe return home w/ . Thank you for this referral. Ayde Peacock OTR/L
--- NOTE | 2018-11-27 10:37 | NUR ---
PHYSICAL THERAPY Patient evaluated on 5, full evaluation to follow. Continue with PT as per plan of care with fall, prior CVA with right hemiparesis and acute debility precautions. Will require SNF. PAtient is moderate complexity via chart review, tests and evaluation: 31002. Thank you for this referral. Funmilayo Siegel,PT
[2018-11-27 12:00] VITALS: BP 135/52
[2018-11-27] MEDS ORDERED: LISINOPRIL5 MG PO (12:37)
[2018-11-27] MEDS ORDERED: AGGRENOX 25/2001 EA PO (12:38)
--- NOTE | 2018-11-27 12:44 | NUR ---
MED REC UPDATED AND VERIFIED WITH [facility].
--- NOTE | 2018-11-27 13:31 | NUR ---
Drum Dyeing Machine Operator in to talk to patient. Patient states lives at HOME with . There are SEVERAL steps in the home. Physician: Akua SANTIAGO [facility]acy[facility] Home health services: NONE Patient's level of ADLs: MODERATE ASSIST Patient has working utilities: YES DME: WALKER Follow-up physician's appointment after d/c: WILL BE MADE BY HOSPITALIST NURSE DIRECTOR ON DISCHARGE Does patient want to access PORTAL?: NO Discharge plan PT STATES SHE LIVES AT HOME WITH HER . TALKED TO PT AND ABOUT SKILLED STAY. IS INSTERESTED BUT PT STATES SHE IS NOT SURE SHE WANTS TO GO. GAVE THEM A LIST OF SNF FACILITIES, THEY WILL DISCUSS IT AND LET ME KNOW. WILL CONTINUE TO FOLLOW. . JESSICA SMALLWOOD
--- NOTE | 2018-11-27 14:05 | NUR ---
PHYSICAL THERAPY Patient seen this pm 1:1 for therapy and was sitting up EOB with her present upon therapist arrival. Patient voices no new c/o's and presents with R side upper / lower deficits from prior CVA. Patient performed several sit to stand transfers Min/CGA, demonstrating slow initial rise and able to ambulate 20' x 1 with use of travis walker, Min A x 1. Patient demonstrates very slow martell, Poor "slouched" upright posture and uneven step sequence. Patient returned to EOB sit and remained with call light, tray table and telephone. Will continue per POC as tolerated, total treatment time 13 minutes. Butch Gilmore, GUSSET RIPPER
--- NOTE | 2018-11-27 14:27 | NUR ---
DR LUX INFORMED OF UPDATED MED REC.
[2018-11-27 16:00] VITALS: BP 147/62
[2018-11-27 20:00] VITALS: BP 135/52
[2018-11-28] VITALS: BP 144/55
--- NOTE | 2018-11-28 00:47 | NUR ---
TYLENOL GIVEN FOR COMPLAINTS OF LBREAST PAIN
--- NOTE | 2018-11-28 00:58 | NUR ---
ZOFRAN GIVEN AT 0045 FOR NAUSEA. PT. COMPLAINTS OF LEFT SIDED CHEST PAIN NOW. 02 2L NC APPLIED AND DR. CRAMER NOTIFIED OF PT. STATUS.
--- NOTE | 2018-11-28 01:09 | NUR ---
MORPHINE GIVEN ORDERED FOR CHEST PAIN.
--- NOTE | 2018-11-28 01:18 | NUR ---
PT. SLEEPING, MORPHINE EFFECTIVE. NANI MERCADO RN
[2018-11-28 06:02] LABS: BASO % 0.4 % (0.0-1.0); EOS % 0.1 % (1.0-4.0); HEMATOCRIT 29.7 % (37.0-47.0); LYMPH # 1.7 10*3/uL (1.3-4.4); LYMPH % 17.2 % (27.0-41.0); MEAN CORPUSCULAR HGB 24.9 pg (27.0-31.0); MEAN CORPUSCULAR HGB CONC 30.3 g/dl (33.0-37.0); MEAN PLATELET VOLUME 10.8 fl (9.6-12.3); MONO # 0.6 10*3/uL (0.1-1.0); MONO % 6.1 % (3.0-9.0); NEUT # 7.7 10*3/uL (2.3-7.9); NEUT % 75.8 % (47.0-73.0); PLATELET COUNT AUTOMATED 308 10*3/uL (130-400); RED BLOOD COUNT 3.62 10*6/uL (4.10-5.10); RED CELL DISTRI WIDTH 16.3 % (0-14.5); WHITE BLOOD COUNT 10.1 10*3/uL (4.8-10.8)
[2018-11-28 06:36] LABS: CREATININE 1.36 mg/dL (0.55-1.02)
[2018-11-28 08:00] VITALS: BP 108/51
[2018-11-28 12:00] VITALS: BP 109/41
--- NOTE | 2018-11-28 13:40 | NUR ---
PHYSICAL THERAPY Patient seen this pm 1;1 for therapy visit and was resting supine in bed with her present upon therapist arrival. Patient reports feeling generalized, global muscle weakness, but otherwise no c/o's pain. Patient transfers supine to sit EOB with Mod A x 2 and sit to stand with use of travis walker support, Min A. Patient ambulates 12' x 2 to bathroom, travis walker, Min A, demonstrating very slow "step to" martell, decreased stride and increased fatigue. Patient also completed toilet transfer with use of L side grab bar, Min/CGA, prior to returning to supine in bed. Patient needed several v/c's to improve travis walker step sequence and would benefit from SNF to increase standing activity tolerance, balance and safe mobilty to prevent risk of increased falls. Patient remained in bed with call light, tray table and bed alarm activated. Will continue per POC as tolerated, total treatment time 16 minutes. Butch Gilmore, HOGSHEAD HOOPER
--- NOTE | 2018-11-28 13:43 | NUR ---
Faxed referral to the [facility], patient requires 3 night stay, waiting on review/acceptance.
--- NOTE | 2018-11-28 13:50 | NUR ---
OT NOTE Pt was seen this P.M. 1:1 for 15 minute OT session. Upon arrival pt was supine in bed. Pt identified by name and and had complaints of increased fatigue and generalized weakness. Pt transferred supine to sit EOB with modA X 2. Sit to stand completed from bed level with Arelis and use of travis walker for UE support. Functional mobility completed into the bathroom with CGA and use of travis walker, pt had two LOB that occured backwards that required maxA to correct. Pt transferred on to standard commode with Arelis for assist with sequencing and following commands. Clothing management completed with modA. Pt then transferred off standard commode with Arelis. Functional mobility completed back to the EOB where she transferred sit to supine with modA X 2. There she was left with call light in hand, tray table in place, and bed alarm activated for safety. Continue with rec D/C plan to SNF. REY Hutchinson/Candice
--- NOTE | 2018-11-28 14:05 | NUR ---
PT AND HAVE DECIDED THEY WANT PT TO GO TO [facility] FOR REHAB BEFORE GOING HOME. REFERRAL WAS SENT BY TELECOMMUNICATIONS MANAGER. WILL CONTINUE TO FOLLOW.
--- NOTE | 2018-11-28 14:37 | NUR ---
MEDICATED WITH ZOFRAN PER PRN ORDER FOR SMALL EMESIS. WILL MONITOR FOR EFFECTIVENESS.
--- NOTE | 2018-11-28 15:00 | NUR ---
patient has been accepted to [facility], requires three night stay. Patient can go 11/29/18 if medically stable for discharge.
[2018-11-28 16:00] VITALS: BP 117/50
[2018-11-28 19:59] VITALS: BP 117/47
[2018-11-29] VITALS: BP 93/36
[2018-11-29 08:00] VITALS: BP 112/40
[2018-11-29] MEDS ORDERED: ZOFRAN4 MG PO (08:44)
--- NOTE | 2018-11-29 10:48 | NUR ---
Patient is discharged to the [facility], transportation scheduled for 1:30 with [place]. DC info faxed, [place], upward bound director, nursing and notified.
--- NOTE | 2018-11-29 11:31 | NUR ---
PHYSICAL THERAPY CO-SIGN I approve of the Phyical Therapy notes written above. ESTEBAN MERCER PT
[2018-11-29 12:00] VITALS: BP 116/48
--- NOTE | 2018-11-29 12:25 | NUR ---
REPORT GIVEN TO GABRIELA AT [facility].
--- NOTE | 2018-11-29 14:52 | NUR ---
PATIENT DISCHARGED TO [facility] VIA [facility]. ALL PERSONAL BELONGINGS SENT WITH PATIENT. DISCHARGE PACKET GIVEN TO AMBULANCE CREW. IV DISCONTINUED.
--- NOTE | 2018-11-29 16:03 | NUR ---
OCCUPATIONAL THERAPY CO-SIGN I approve of the Occupational Therapy notes written above. PILI GONZALEZ OTR/Candice
[2018-12-05] MEDS ORDERED: METOPROLOL TART50 M1 PO (15:28)
[2018-12-05] MEDS ORDERED: IMDUR SA60 M1 PO (15:28)
== END 2018-11-29 14:52 | disposition other institution (70) | DRG 640 ==
LOC: ED 18:32 → EDHOLD 21:00 → 5E 21:00
PROVIDERS: Internal Medicine; Student in an Organized Health Care Education/Training Program; ADMIT Internal Medicine
DX: E86.0 Dehydration (principal); N17.0 Acute kidney failure with tubular necrosis; E44.0 Moderate protein-calorie malnutrition; I69.351 Hemiplegia and hemiparesis following cerebral infarction affecting right dominant side; R54 Age-related physical debility; I10 Essential (primary) hypertension; R26.2 Difficulty in walking, not elsewhere classified; E78.5 Hyperlipidemia, unspecified; E11.65 Type 2 diabetes mellitus with hyperglycemia; D64.9 Anemia, unspecified; M25.562 Pain in left knee; M17.0 Bilateral primary osteoarthritis of knee; K57.30 Diverticulosis of large intestine without perforation or abscess without bleeding; Z87.440 Personal history of urinary (tract) infections; Z91.040 Latex allergy status; Z88.5 Allergy status to narcotic agent; Z88.8 Allergy status to other drugs, medicaments and biological substances; Z91.048 Other nonmedicinal substance allergy status; Z90.49 Acquired absence of other specified parts of digestive tract; Z82.3 Family history of stroke; Z82.49 Family history of ischemic heart disease and other diseases of the circulatory system; Z80.8 Family history of malignant neoplasm of other organs or systems; Z79.899 Other long term (current) drug therapy; Z79.84 Long term (current) use of oral hypoglycemic drugs; Z68.29 Body mass index [BMI] 29.0-29.9, adult

== ENCOUNTER 2018-12-01 00:47 | Inpatient (IN) | payer MEDICARE ==
[~2018-12-01] VITALS: Ht 127 cm; Wt 46.8 kg
[2018-12-01] VITALS (7 sets, daily range): BP systolic 150–175; BP diastolic 58–80
--- NOTE | ~2018-12-01 | EKG ---
[place], [place] ELECTROCARDIOGRAM REPORT NAME: KEN DESOUZA UNIT #: [id number] ROOM: 532 DOCTOR: AIDEN DRAFT REPORT BIRTHDATE: [birth year] [facility] Test Date: 2018-12-01 Test Time: 00:50:34 Pat Name: KEN DESOUZA Department: Room: 532 Gender: F Director Talent Acquisition: : 1930 Requested By: SADIA HUTTON Order Number: [id number] Reading MD: Fina Castro Measurements Intervals [place] Rate: 116 P: 72 IA: 157 QRS: 51 QRSD: 78 T: 16 QT: 341 QTc: 474 Interpretive Statements Sinus tachycardia Nonspecific T abnormalities, lateral leads Compared to ECG 11/26/2018 19:22:29 T-wave abnormality now present Sinus rhythm no longer present Electronically Signed On 12-02-2018 5:12:16 PDT by Fina Castro CM:EKGRPT:ELECTROCARDIOGRAM REPORT 0050 0512 SADIA CORBETT DRAFT REPORT SADIA HUTTON DO
--- NOTE | ~2018-12-01 | PR ---
[place], [place] PROGRESS NOTE NAME: KEN DESOUZA UNIT #: [id number] ROOM: 532 DOCTOR: ANYA JESSICA MD BIRTHDATE: [birth year] DOS: 12/02/2018 CARDIOLOGY FOLLOWUP NOTE REASON FOR VISIT: NSTEMI. SUBJECTIVE: The patient denies any chest pain or shortness of breath. There are no palpitations or dizziness and she slept good last night. REVIEW OF SYSTEMS: Review of 8 systems negative, but somewhat limited due to the patient's status. PHYSICAL EXAMINATION: VITAL SIGNS: Blood pressure 160/56, pulse 89, respiratory rate of 18, weight 46.7 kilos. RHYTHM STRIPS: The patient is in sinus rhythm. GENERAL: Alert, comfortable, in no acute distress. HEAD AND NECK: Pupils are round and equal. No jaundice. Tongue was moist and pharynx clear. Neck is supple. No distended neck veins, no carotid bruit. CHEST: Symmetrical, nontender. LUNGS: Clear to auscultation bilaterally. HEART: Regular rhythm, no S3. Grade 1/6 systolic murmur. ABDOMEN: Benign, nontender. Bowel sounds normal. EXTREMITIES: Showed trace edema. Distal pulses palpable. SKIN: Warm and dry. Right leg was slightly cooler compared to left leg. PSYCHIATRIC: The patient is alert, oriented with residual weakness on the right side. MEDICATIONS AND ALLERGIES: Reviewed. IMPRESSION: 1. Non-ST elevation myocardial infarction. No further chest pains. 2. Anemia. 3. Urinary tract infection. 4. History of cerebrovascular accident with right-sided weakness. 5. Hypertension. 6. Diabetes. RECOMMENDATIONS: 1. Continue her current cardiac medications include aspirin, beta blockers and Lovenox. 2. Discontinue Lovenox tomorrow and possibly she can be discharged home tomorrow. No further cardiac testing. A 2D echo from February 2018 reviewed. Case was discussed with her family member who is at bedside. [place], [place] PROGRESS NOTE NAME: KEN DESOUZA UNIT #: [id number] ROOM: 532 DOCTOR: ANYA JESSICA MD BIRTHDATE: [birth year] ANYA JESSICA MD CM:CELESTE 1501 ANYA JESSICA MD 12/03/18 0234 interface
--- NOTE | ~2018-12-01 | CON ---
[place], [place] REPORT OF CONSULTATION NAME: KEN DESOUZA UNIT #: [id number] ROOM: 532 DOCTOR: ANYA JESSICA MD BIRTHDATE: [birth year] DOS: 12/01/2018 REASON FOR CONSULTATION: Elevated troponin. HISTORY OF PRESENT ILLNESS: The patient is an 88-year-old who "presented with chest pain". History was limited due to the patient's condition. At the time of examination, her stated that patient having some left-sided midsternal chest pain and she is also being tired and sleepy. Apparently, she was admitted to the hospital about a week ago for ambulatory dysfunction and discharged a [facility] ago to a [facility] facility. Again history was somewhat limited since the patient was unable to give a detailed history, but at the time of my examination, she denies any chest pain or shortness of breath, having some occasional nausea and epigastric discomfort. No PND, no orthopnea, no fever, no chills, no cough, no hemoptysis. is at bedside at the time of my examination. Cardiology consulted for her elevated troponins. She denies any palpitations. No syncope, but she came with left-sided chest pain which is dull ache pain at rest, lasted for several minutes. Again, she was somewhat poor historian, unable to give a detailed history regarding her pains. REVIEW OF SYSTEMS: Review of 10 systems negative except as mentioned above. PAST MEDICAL HISTORY: History of CVA with right-sided weakness, hypertension, dyslipidemia, anemia, type 2 diabetes, diverticulosis, history of GI bleed. PAST SURGICAL HISTORY: History of cholecystectomy and . SOCIAL HISTORY: She does not smoke or drink, does not use illicit drugs. FAMILY HISTORY: Nil contributory due to her age. ALLERGIES: Reviewed. The patient is allergic to multiple medications. HOME MEDICATIONS: Pertinent cardiac medications include aspirin, Lipitor, lisinopril, and Aggrenox. PHYSICAL EXAMINATION: VITAL SIGNS: Blood pressure 151/71, pulse 90, respiratory rate is 18, weight 46.7 kilos, BMI 29. GENERAL: Alert, comfortable, in no acute distress. HEENT: Pupils are round and equal. No jaundice. NECK: Supple, no distended neck veins, no carotid bruit. CHEST: Symmetrical, nontender. LUNGS: Clear to auscultation bilaterally. HEART: Irregular rhythm, no S3, no palpable thrills. A grade 1/6 systolic murmur. ABDOMEN: Benign, nontender. Bowel sounds normal. EXTREMITIES: Showed no edema. Distal pulses palpable. SKIN: Warm and dry. No cyanosis, no clubbing. RECTAL: Deferred. [place], [place] REPORT OF CONSULTATION NAME: KEN DESOUZA UNIT #: [id number] ROOM: [facility] DOCTOR: ANYA JESSICA MD BIRTHDATE: [birth year] GENITOURINARY: Deferred. NEUROLOGIC: The patient is alert and oriented to place and person. Right-sided weakness. PSYCHIATRIC: Alert with good mood and affect. Medications, labs and imaging studies reviewed. EKG showed sinus rhythm with no acute ST-T changes. CBC, chemistry is reviewed. Her cardiac troponins are 0.055, 0.157, 0.254. Stress test in 09/2017, nonischemic. A 2D echo on 02/2018 showed EF of 70%, diastolic dysfunction, mild tricuspid regurgitation. IMPRESSION: 1. Chest pain, atypical. 2. Non-ST elevation myocardial infarction based on her cardiac troponins. EKG showed no ischemic changes. 3. History of cerebrovascular accident with right-sided weakness. 4. Hypertension. 5. Diabetes type 2. 6. Anemia. 7. Chronic kidney disease stage 2. RECOMMENDATIONS: 1. Currently, she denies any chest pain. 2. Continue her beta blockers and the patient was on Aggrenox at home, so I resumed her Aggrenox and continue her Lovenox. 3. Due to her age and other comorbidities, I would not recommend any further invasive testing since she is not a candidate for open heart surgery and also patient and her family member does not want to send her for heart surgery. Possible stress test on Monday was discussed; however, the stress would not help much since she is not a candidate for invasive testing, so we recommended treating her conservatively with medications including her aspirin, beta-blockers and statins and continue Lovenox for 48 hours. 4. Possible discharge Monday. 5. Treatment was discussed with the patient, her family member as well as attending physician. ANYA JESSICA MD CM:CONSTR:REPORT OF CONSULTATION 1745 12/02/18 0312 interface
--- NOTE | ~2018-12-01 | EKG ---
[place], [place] ELECTROCARDIOGRAM REPORT NAME: KEN DESOUZA UNIT #: [id number] ROOM: 532 DOCTOR: AIDEN DRAFT REPORT BIRTHDATE: [address] [facility] Test Date: 2018-12-01 Test Time: 07:44:45 Pat Name: KEN DESOUZA Department: Room: 532 Gender: F Corrections Specialist: Yeimi Rendon : 1930 Requested By: SADIA HUTTON Order Number: [id number] Reading MD: Fina Castro Measurements Intervals [place] Rate: 80 P: 66 AR: 193 QRS: 40 QRSD: 76 T: 56 QT: 409 QTc: 472 Interpretive Statements Sinus rhythm Minimal ST depression, lateral leads Compared to ECG 11/26/2018 19:22:29 ST (T wave) deviation now present Electronically Signed On 12-02-2018 5:15:54 PDT by Fina Castro CM:EKGRPT:ELECTROCARDIOGRAM REPORT [id number] 0515 SADIA CORBETT DRAFT REPORT SADIA HUTTON DO
--- NOTE | ~2018-12-01 | EKG ---
[place], [place] ELECTROCARDIOGRAM REPORT NAME: KEN DESOUZA UNIT #: [id number] ROOM: 532 DOCTOR: AIDEN DRAFT REPORT BIRTHDATE: [birth year] [facility] Test Date: 2018-12-01 Test Time: 03:53:20 Pat Name: KEN DESOUZA Department: Room: 532 Gender: F Cellophane Worker: : 1930 Requested By: SADIA HUTTON Order Number: [id number] Reading MD: Fina Castro Measurements Intervals [place] Rate: 104 P: 55 AL: 170 QRS: 23 QRSD: 82 T: 50 QT: 371 QTc: 488 Interpretive Statements Sinus tachycardia Probable left atrial enlargement Borderline prolonged QT interval Compared to ECG 11/26/2018 19:22:29 Sinus rhythm no longer present Electronically Signed On 12-02-2018 5:15:13 PDT by Fina Castro CM:EKGRPT:ELECTROCARDIOGRAM REPORT [id number] 0515 SADIA CORBETT DRAFT REPORT SADIA HUTTON DO
--- NOTE | ~2018-12-01 | EKG ---
[place], [place] ELECTROCARDIOGRAM REPORT NAME: KEN DESOUZA UNIT #: [id number] ROOM: 532 DOCTOR: AIDEN DRAFT REPORT BIRTHDATE: [birth year] [facility] Test Date: 2018-12-01 Test Time: 10:42:34 Pat Name: KEN DESOUZA Department: Room: 532 1 Gender: F Principal Java Software Engineer: Yeimi Rendon : 1930 Requested By: SILVER GARNICA Order Number: [id number] Reading MD: Fina Castro Measurements Intervals [place] Rate: 87 P: 47 LA: 173 QRS: 36 QRSD: 91 T: 54 QT: 395 QTc: 476 Interpretive Statements Sinus rhythm Compared to ECG 11/26/2018 19:22:29 No significant changes Electronically Signed On 12-02-2018 5:16:10 PDT by Fina Castro CM:EKGRPT:ELECTROCARDIOGRAM REPORT 1042 0516 SILVER CORBETT DRAFT REPORT SILVER GARNICA DO
[~2018-12-01 00:47] MED LIST changes: +ZOFRAN4 MG PO
[2018-12-01 01:04] LABS: BASO # 0.1 10*3/uL (0.0-0.1); BASO % 0.6 % (0.0-1.0); EOS # 0.1 10*3/uL (0.0-0.4); EOS % 1.6 % (1.0-4.0); HEMATOCRIT 34.4 % (37.0-47.0); HEMOGLOBIN 10.5 g/dl (12.0-16.0); LYMPH # 2.6 10*3/uL (1.3-4.4); LYMPH % 28.5 % (27.0-41.0); MEAN CELL VOLUME 82.7 fl (81.0-99.0); MEAN CORPUSCULAR HGB 25.2 pg (27.0-31.0); MEAN CORPUSCULAR HGB CONC 30.5 g/dl (33.0-37.0); MEAN PLATELET VOLUME 10.8 fl (9.6-12.3); MONO # 0.6 10*3/uL (0.1-1.0); MONO % 6.3 % (3.0-9.0); NEUT # 5.7 10*3/uL (2.3-7.9); NEUT % 62.7 % (47.0-73.0); PLATELET COUNT AUTOMATED 334 10*3/uL (130-400); RED BLOOD COUNT 4.16 10*6/uL (4.10-5.10); RED CELL DISTRI WIDTH 16.8 % (0-14.5)
[2018-12-01 01:14] LABS: ACT PARTIAL THROMBO TIME 21.8 SECONDS (20.8-31.5); INTERNATIONAL NORM RATIO 0.9 (2.0-3.5)
[2018-12-01 01:21] LABS: ALBUMIN 3.6 gm/dl (3.1-4.5); CREATININE 1.15 mg/dL (0.55-1.02); TOTAL PROTEIN 7.9 gm/dL (6.4-8.2)
[2018-12-01 01:32] LABS: TROPONIN I 0.055 ng/ml (<0.045)
[2018-12-01 07:06] LABS: BASO % 0.4 % (0.0-1.0); EOS # 0.1 10*3/uL (0.0-0.4); EOS % 0.8 % (1.0-4.0); HEMATOCRIT 32.3 % (37.0-47.0); HEMOGLOBIN 9.8 g/dl (12.0-16.0); LYMPH # 2.1 10*3/uL (1.3-4.4); LYMPH % 24.9 % (27.0-41.0); MEAN CELL VOLUME 83.2 fl (81.0-99.0); MEAN CORPUSCULAR HGB 25.3 pg (27.0-31.0); MEAN CORPUSCULAR HGB CONC 30.3 g/dl (33.0-37.0); MEAN PLATELET VOLUME 10.6 fl (9.6-12.3); MONO # 0.6 10*3/uL (0.1-1.0); MONO % 6.7 % (3.0-9.0); NEUT # 5.7 10*3/uL (2.3-7.9); NEUT % 67.1 % (47.0-73.0); PLATELET COUNT AUTOMATED 331 10*3/uL (130-400); RED BLOOD COUNT 3.88 10*6/uL (4.10-5.10); RED CELL DISTRI WIDTH 16.9 % (0-14.5); WHITE BLOOD COUNT 8.5 10*3/uL (4.8-10.8)
[2018-12-01 07:30] LABS: CREATININE 1.09 mg/dL (0.55-1.02); POTASSIUM 4.1 mmol/L (3.5-5.1)
[2018-12-02] VITALS: BP 168/56
[2018-12-02 06:38] LABS: BASO % 0.4 % (0.0-1.0); EOS % 0.4 % (1.0-4.0); HEMATOCRIT 31.7 % (37.0-47.0); HEMOGLOBIN 9.5 g/dl (12.0-16.0); LYMPH # 2.1 10*3/uL (1.3-4.4); LYMPH % 22.7 % (27.0-41.0); MEAN CELL VOLUME 82.8 fl (81.0-99.0); MEAN CORPUSCULAR HGB 24.8 pg (27.0-31.0); MEAN PLATELET VOLUME 10.9 fl (9.6-12.3); MONO # 0.4 10*3/uL (0.1-1.0); MONO % 4.8 % (3.0-9.0); NEUT # 6.6 10*3/uL (2.3-7.9); NEUT % 71.4 % (47.0-73.0); PLATELET COUNT AUTOMATED 301 10*3/uL (130-400); RED BLOOD COUNT 3.83 10*6/uL (4.10-5.10); RED CELL DISTRI WIDTH 17.1 % (0-14.5); WHITE BLOOD COUNT 9.2 10*3/uL (4.8-10.8)
[2018-12-02 07:01] LABS: BUN 16 mg/dl (7-24); CHLORIDE 110 mmol/L (98-107); CREATININE 0.93 mg/dL (0.55-1.02); POTASSIUM 4.1 mmol/L (3.5-5.1); SODIUM 144 mmol/L (136-145)
[2018-12-02 08:10] VITALS: BP 124/64
[2018-12-02 12:00] VITALS: BP 136/49
[2018-12-02 16:00] VITALS: BP 145/52
[2018-12-02 20:00] VITALS: BP 146/58
[2018-12-03] VITALS: BP 147/59
[2018-12-03 06:39] LABS: BASO % 0.5 % (0.0-1.0); EOS # 0.1 10*3/uL (0.0-0.4); EOS % 1.1 % (1.0-4.0); HEMATOCRIT 30.3 % (37.0-47.0); LYMPH # 2.4 10*3/uL (1.3-4.4); LYMPH % 29.3 % (27.0-41.0); MEAN CORPUSCULAR HGB 24.7 pg (27.0-31.0); MEAN CORPUSCULAR HGB CONC 29.7 g/dl (33.0-37.0); MEAN PLATELET VOLUME 11.5 fl (9.6-12.3); MONO # 0.6 10*3/uL (0.1-1.0); MONO % 6.9 % (3.0-9.0); NEUT % 61.8 % (47.0-73.0); PLATELET COUNT AUTOMATED 301 10*3/uL (130-400); RED BLOOD COUNT 3.65 10*6/uL (4.10-5.10); RED CELL DISTRI WIDTH 16.9 % (0-14.5); WHITE BLOOD COUNT 8.2 10*3/uL (4.8-10.8)
[2018-12-03 06:44] LABS: BUN 19 mg/dl (7-24); CHLORIDE 109 mmol/L (98-107); CREATININE 0.87 mg/dL (0.55-1.02); SODIUM 143 mmol/L (136-145)
[2018-12-03] MEDS ORDERED: ASPIRIN ADULT L81 M2 PO (10:26)
[2018-12-03] MEDS ORDERED: LOPRESSOR25 MG PO (10:26)
[2018-12-03] MEDS ORDERED: ZOFRAN4 MG PO (10:29)
[2018-12-03] MEDS ORDERED: HYDROCODONE-AC1 EAC1 PO (10:29)
[2018-12-03 12:00] VITALS: BP 114/75
[2018-12-05] MEDS ORDERED: IMDUR SA60 M1 PO (15:28)
[2018-12-05] MEDS ORDERED: METOPROLOL TART50 M1 PO (15:28)
== END 2018-12-03 16:57 | disposition home or self-care (01) | DRG 280 ==
LOC: ED 00:47 → EDHOLD 03:54 → 5E 03:54
PROVIDERS: Emergency Medicine; Family Medicine; Internal Medicine; ADMIT Internal Medicine
DX: I21.4 Non-ST elevation (NSTEMI) myocardial infarction (principal); N17.0 Acute kidney failure with tubular necrosis; G93.41 Metabolic encephalopathy; E44.0 Moderate protein-calorie malnutrition; I69.351 Hemiplegia and hemiparesis following cerebral infarction affecting right dominant side; N39.0 Urinary tract infection, site not specified; E11.22 Type 2 diabetes mellitus with diabetic chronic kidney disease; R54 Age-related physical debility; R26.2 Difficulty in walking, not elsewhere classified; D64.9 Anemia, unspecified; I12.9 Hypertensive chronic kidney disease with stage 1 through stage 4 chronic kidney disease, or unspecified chronic kidney disease; N18.2 Chronic kidney disease, stage 2 (mild); M19.90 Unspecified osteoarthritis, unspecified site; K57.90 Diverticulosis of intestine, part unspecified, without perforation or abscess without bleeding; E78.5 Hyperlipidemia, unspecified; Z79.84 Long term (current) use of oral hypoglycemic drugs; Z90.49 Acquired absence of other specified parts of digestive tract; Z98.891 History of uterine scar from previous surgery; Z91.041 Radiographic dye allergy status; Z91.040 Latex allergy status; Z88.8 Allergy status to other drugs, medicaments and biological substances; Z91.048 Other nonmedicinal substance allergy status; Z82.49 Family history of ischemic heart disease and other diseases of the circulatory system; Z82.3 Family history of stroke; Z80.9 Family history of malignant neoplasm, unspecified; Z79.82 Long term (current) use of aspirin; Z79.899 Other long term (current) drug therapy; Z68.29 Body mass index [BMI] 29.0-29.9, adult

== ENCOUNTER 2018-12-09 12:16 | Inpatient (IN) | payer OTHER ==
[~2018-12-09] VITALS: Ht 152.4 cm; Wt 46.9 kg
--- NOTE | ~2018-12-09 | EKG ---
[place], [place] ELECTROCARDIOGRAM REPORT NAME: KEN DESOUZA UNIT #: [id number] ROOM: 420 DOCTOR: AIDEN DRAFT REPORT BIRTHDATE: [birth year] [facility] Test Date: 2018-12-09 Test Time: 21:38:46 Pat Name: KEN DESOUZA Department: Room: 420 1 Gender: F Dough Scaler And Mixer: : 1930 Requested By: ARON CARTER Order Number: [id number] Reading MD: Fina Castro Measurements Intervals [place] Rate: 102 P: 77 WY: 166 QRS: 31 QRSD: 84 T: 25 QT: 375 QTc: 489 Interpretive Statements Sinus tachycardia Probable left atrial enlargement Nonspecific T abnormalities, lateral leads Borderline prolonged QT interval Compared to ECG 12/04/2018 04:32:56 T-wave abnormality now present Sinus rhythm no longer present Electronically Signed On 12-13-2018 5:49:01 PDT by Fina Castro CM:EKGRPT:ELECTROCARDIOGRAM REPORT [id number] ARON CORBETT DRAFT REPORT ARON CARTER DO
--- NOTE | ~2018-12-09 | EKG ---
[place], [place] ELECTROCARDIOGRAM REPORT NAME: KEN DESOUZA UNIT #: [id number] ROOM: 420 DOCTOR: AIDEN DRAFT REPORT BIRTHDATE: [birth year] [facility] Test Date: 2018-12-09 Test Time: 12:35:10 Pat Name: KEN DESOUZA Department: Room: 420 Gender: F Hospital Chaplain: : 1930 Requested By: VICENTE MCKNIGHT Order Number: [id number] Reading MD: Fina Castro Measurements Intervals [place] Rate: 82 P: 52 [place]: 180 QRS: 49 QRSD: 87 T: 55 QT: 384 QTc: 449 Interpretive Statements Sinus rhythm Baseline wander in lead(s) V1 Compared to ECG 12/04/2018 04:32:56 No significant changes Electronically Signed On 12-13-2018 5:43:56 PDT by Fina Castro CM:EKGRPT:ELECTROCARDIOGRAM REPORT [id number] VICENTE CORBETT DRAFT REPORT VICENTE MCKNIGHT DO
[2018-12-09 12:16] VITALS: BP 167/56
[~2018-12-09 12:16] MED LIST changes: +ASPIRIN ADULT L81 M2 PO; +HYDROCODONE-AC1 EAC1 PO; +IMDUR SA60 M1 PO; +LOPRESSOR25 MG PO; +METOPROLOL TART50 M1 PO
[2018-12-09 12:45] VITALS: BP 154/64
[2018-12-09 13:14] LABS: BASO # 0.1 10*3/uL (0.0-0.1); BASO % 0.9 % (0.0-1.0); EOS # 0.1 10*3/uL (0.0-0.4); EOS % 1.6 % (1.0-4.0); HEMATOCRIT 34.7 % (37.0-47.0); HEMOGLOBIN 10.5 g/dl (12.0-16.0); LYMPH # 1.7 10*3/uL (1.3-4.4); LYMPH % 24.5 % (27.0-41.0); MEAN CELL VOLUME 87.8 fl (81.0-99.0); MEAN CORPUSCULAR HGB 26.6 pg (27.0-31.0); MEAN CORPUSCULAR HGB CONC 30.3 g/dl (33.0-37.0); MEAN PLATELET VOLUME 10.5 fl (9.6-12.3); MONO # 0.5 10*3/uL (0.1-1.0); MONO % 7.6 % (3.0-9.0); NEUT # 4.4 10*3/uL (2.3-7.9); NEUT % 65.1 % (47.0-73.0); PLATELET COUNT AUTOMATED 332 10*3/uL (130-400); RED BLOOD COUNT 3.95 10*6/uL (4.10-5.10); RED CELL DISTRI WIDTH 18.2 % (0-14.5); WHITE BLOOD COUNT 6.7 10*3/uL (4.8-10.8)
[2018-12-09 13:23] LABS: ACT PARTIAL THROMBO TIME 22.7 SECONDS (20.8-31.5); INTERNATIONAL NORM RATIO 0.9 (2.0-3.5)
[2018-12-09 13:32] LABS: ALKALINE PHOSPHATASE 62 U/L (45-117); BUN 31 mg/dl (7-24); CHLORIDE 112 mmol/L (98-107); POTASSIUM 3.8 mmol/L (3.5-5.1); SGOT/AST 18 IU/L (3-35); SGPT/ALT 17 U/L (12-78); SODIUM 144 mmol/L (136-145); TOTAL PROTEIN 6.8 gm/dL (6.4-8.2)
[2018-12-09 13:33] LABS: TROPONIN I < 0.015 ng/ml (<0.045)
[2018-12-09 13:45] VITALS: BP 172/71
--- NOTE | 2018-12-09 14:05 | NUR ---
ATEMPTED BED PAUL AND THE PATIENT IS UNABLE TO VOID THE DOES NOT WANT THE PATEINT STRAIGHT CATHED. SABRINA SANCHEZ RN.
[2018-12-09 14:47] LABS: URINE AMPHETAMINES < 1000 (1000ng/ml); URINE BARBITURATES < 200 (200ng/ml); URINE BENZODIAZEPINES < 200 (200ng/ml); URINE CANNABINOIDS (THC) < 50 (50ng/ml); URINE COCAINE < 300 (300ng/ml); URINE METHADONE < 300 (300ng/ml); URINE OPIATES < 300 (300ng/ml)
[2018-12-09 14:51] LABS: URINE PHENCYCLIDINE < 25 (25ng/ml)
[2018-12-09 15:35] LABS: BILIRUBIN NEGATIVE (NEGATIVE); BLOOD NEGATIVE (NEGATIVE); CLARITY CLEAR (CLEAR); COLOR YELLOW (YELLOW); GLUCOSE NEGATIVE (NEGATIVE); KETONE 1+ (NEGATIVE); LEUKO ESTERASE NEGATIVE (NEGATIVE); NITRITE NEGATIVE (NEGATIVE); PH 5.5 (5.0-9.0); SPECIFIC GRAVITY 1.025 (1.005-1.030); UROBILINOGEN 0.2 E.U./dl (0.2-1.0)
[2018-12-09 15:44] VITALS: BP 160/64
[2018-12-09 15:47] LABS: BACTERIA TRACE; RBC 0-2 rbc/hpf (0-2); WBC 0-2 wbc/hpf (0-5)
[2018-12-09 17:00] VITALS: BP 189/73
--- NOTE | 2018-12-09 17:00 | NUR ---
A 88, admitted to , under the services of ARON Meyers DO with a diagnosis of METABOLIC ENCEPHALOPATHY. Chief complaint is CHANGE IN MENTAL STATUS. Patient arrived via bed from ER. Monitor applied. Initial assessment completed. Vital signs taken and recorded. ARON MEYERS DO notified of admission to the unit. Orders received. See assessment for past medical history, medications and allergies. Patient and/or family oriented to unit. [facility] visitation policy reviewed. Clothing/patient valuable form completed. NAYELI TEAGUE
--- NOTE | 2018-12-09 19:06 | NUR ---
OFFICE STAFF WAS NOTIFIED OF DR. MISTY PRITCHETT CONSULT. RESPONSE OF NOTIFICATION WAS OK I WILL HAVE HER CALL YOU BACK. NAYELI TEAGUE
--- NOTE | 2018-12-09 19:15 | NUR ---
SPOKE TO MISTY PRITCHETT AND GAVE HER INFO. SHE SAID SHE WILL CALL US BACK AFTER SHE SPEAKS TO FAMILY
[2018-12-09 20:00] VITALS: BP 162/53
--- NOTE | 2018-12-09 20:45 | NUR ---
BP 162/[address] NOONAN AT THIS TIME. NO NEW ORDERS RECIEVED.
--- NOTE | 2018-12-09 21:40 | NUR ---
DR. NOONAN CONTACTED AT THIS TIME REGARDING PATIENT C/O LEFT SIDED CHEST PAIN AND STAT EKG BEING ORDERED. SEE NEW ORDERS.
--- NOTE | 2018-12-09 22:05 | NUR ---
2200 MEDICATIONS, ONE TIME DOSE OF NITRO BID, AND PRN TYLENOL GIVEN AT THIS TIME. PATIENT TOLERATED WELL, CALL LIGHT IS WITHIN REACH. WILL MONITOR.
[2018-12-10] VITALS: BP 142/62; BP 172/61
[2018-12-10 04:00] VITALS: BP 142/62
--- NOTE | 2018-12-10 04:06 | NUR ---
SPOKEMWITH DR. NOONAN REGARDING BLOOD PRESSURE OF 182/64. NO NEW ORDERS AT THIS TIME.
[2018-12-10 06:57] LABS: BASO # 0.1 10*3/uL (0.0-0.1); BASO % 0.6 % (0.0-1.0); EOS # 0.2 10*3/uL (0.0-0.4); EOS % 2.3 % (1.0-4.0); HEMATOCRIT 37.7 % (37.0-47.0); HEMOGLOBIN 11.2 g/dl (12.0-16.0); LYMPH # 2.3 10*3/uL (1.3-4.4); LYMPH % 30.1 % (27.0-41.0); MEAN CELL VOLUME 87.9 fl (81.0-99.0); MEAN CORPUSCULAR HGB 26.1 pg (27.0-31.0); MEAN CORPUSCULAR HGB CONC 29.7 g/dl (33.0-37.0); MEAN PLATELET VOLUME 10.2 fl (9.6-12.3); MONO # 0.7 10*3/uL (0.1-1.0); MONO % 8.9 % (3.0-9.0); NEUT # 4.5 10*3/uL (2.3-7.9); NEUT % 57.8 % (47.0-73.0); PLATELET COUNT AUTOMATED 321 10*3/uL (130-400); RED BLOOD COUNT 4.29 10*6/uL (4.10-5.10); RED CELL DISTRI WIDTH 17.6 % (0-14.5); WHITE BLOOD COUNT 7.8 10*3/uL (4.8-10.8)
[2018-12-10 07:20] LABS: CHLORIDE 111 mmol/L (98-107); CREATININE 0.84 mg/dL (0.55-1.02); PHOSPHOROUS 2.4 mg/dL (2.5-4.9); POTASSIUM 3.7 mmol/L (3.5-5.1); SODIUM 144 mmol/L (136-145)
[2018-12-10 07:28] LABS: FREE T4 1.14 ng/dl (0.76-1.46)
[2018-12-10 07:30] LABS: BUN 19 mg/dl (7-24)
[2018-12-10 08:00] VITALS: BP 152/78; BP 167/59
--- NOTE | 2018-12-10 08:46 | NUR ---
Patient is short term care at [facility], she can return when medically stable for discharge.
--- NOTE | 2018-12-10 08:48 | NUR ---
Shift chart check completed.
--- NOTE | 2018-12-10 09:00 | NUR ---
case management visits with patient, talked to patient's , stated that patient would return to [facility] when medically stable
--- NOTE | 2018-12-10 10:39 | NUR ---
NEUROLOGIAL ASSESSMENT COMPLETE. PATIENT L HAND FOAM CHARGER STRONG. R HAND FOAM CHARGER ABSENT. NO MOVEMENT OF RUE. RUE CONTRACTED. BUE COLD TO THE TOUCH. PATIENT WAS ABLE TO RUN LEFT HEEL DOWN RIGHT SIMMONS. PATIENT UNABLE TO RUN RIGHT HEEL DOWN LEFT SIMMONS. PATIENT ABLE TO RAISE RIGHT LEG SIGNIFICANTLY BUT UNABLE TO CARRY OUT INSTRUCTION. PERRL.
[2018-12-10 12:00] VITALS: BP 129/47
[2018-12-10 15:40] LABS: IRON 43 ug/dL (50-170); TOTAL IRON BINDING CAPACITY 393 ug/dl (250-450)
[2018-12-10 16:00] VITALS: BP 144/55
--- NOTE | 2018-12-10 16:51 | NUR ---
DR. MALDONADO NOTIFIED THAT PATIENT GROIN IS REDDENED, PER PHYSICIAN WILL PLACE ORDERS
[2018-12-10 20:00] VITALS: BP 160/73
--- NOTE | 2018-12-10 20:00 | NUR ---
RESTING IN BED WITH HOB SLIGHTLY ELEVATED. PT. AWAKE/ALERT; FORGETFUL AT TIMES. HEP LOCK INTACT TO RIGHT ARM & RIGHT WRIST. PT. VOICES NO C/O AT THIS TIME. PRESENT IN ROOM. BED ALARM ON.
--- NOTE | 2018-12-10 22:00 | NUR ---
BLOOD SUGAR 160; COVERAGE GIVEN PER EMAR.
[2018-12-11] VITALS: BP 142/62
--- NOTE | 2018-12-11 00:45 | NUR ---
HAS PATIENT ON BSC. THIS RN HELPED PUT PATIENT BACK TO BED. PT. UNABLE TO WALK BUT PIVOTS SLIGHTLY BUT IS A MAXIMUM ASSIST OF 2 BACK TO BED. PULLED PATIENT UP IN BED; CHANGED HER GOWN & PUT A DEPENDS ON HER. IV FLUIDS CONTINUE TO INFUSE ORDERED. BED IN LOW LOCKED POSITION. CALL LIGHT WITHIN REACH.
--- NOTE | 2018-12-11 06:00 | NUR ---
BLOOD SUGAR 88; NO COVERAGE REQUIRED.
--- NOTE | 2018-12-11 06:15 | NUR ---
PT. UP TO BSC WITH MAXIMUM ASSISTANCE OF 2 & BACK TO BED WITH ASSISTANCE OF 2 RN'S. PRESENT IN ROOM. & PT. ENCOURAGED TO USE CALL LIGHT. BOTH VERBALIZED UNDERSTANDING. BED IN LOW LOCKED POSITION.
[2018-12-11 08:00] VITALS: BP 122/80
--- NOTE | 2018-12-11 09:00 | NUR ---
case management visits with patient, present, patient more alert today, stated she would be going back to [facility] when discharged, was in agreement, patient and denies any other needs at this time
[2018-12-11] MEDS ORDERED: HYDROCODONE-AC1 EAC1 PO (09:17)
[2018-12-11] MEDS ORDERED: NYSTOP60 GM T (09:19)
[2018-12-11 12:00] VITALS: BP 143/60
--- NOTE | 2018-12-11 12:11 | NUR ---
updates faxed to toya from the [facility], educated her that patient would be discharged today.
--- NOTE | 2018-12-11 15:03 | NUR ---
PATIENT TO BE DISCHARGED TO [facility].
--- NOTE | 2018-12-11 15:38 | NUR ---
case management received a message that patient is discharged back to [facility], called [facility], they will last picker patient within 1/2 hour, contacted Kelle at [facility] and informed her patient is being picked up within the 1/2 hour. nursing floor notified
--- NOTE | 2018-12-11 16:38 | NUR ---
Discharge instructions reviewed with patient/family. Patient receptive and verbalizes understanding. Follow-up care arranged. Written instructions given to patient/family. Nurse to nurse report given to Asia lemos [place]. ZANDER BARTON
== END 2018-12-11 16:38 | disposition other institution (70) | DRG 70 ==
LOC: ED 12:16 → EDHOLD 16:13 → 4E 16:13
PROVIDERS: Internal Medicine; ADMIT Internal Medicine
DX: G93.41 Metabolic encephalopathy (principal); N17.0 Acute kidney failure with tubular necrosis; E44.0 Moderate protein-calorie malnutrition; I69.351 Hemiplegia and hemiparesis following cerebral infarction affecting right dominant side; E87.8 Other disorders of electrolyte and fluid balance, not elsewhere classified; E83.41 Hypermagnesemia; R79.82 Elevated C-reactive protein (CRP); D64.9 Anemia, unspecified; I10 Essential (primary) hypertension; E78.5 Hyperlipidemia, unspecified; R82.4 Acetonuria; E11.9 Type 2 diabetes mellitus without complications; R53.81 Other malaise; M19.90 Unspecified osteoarthritis, unspecified site; I25.2 Old myocardial infarction; Z90.49 Acquired absence of other specified parts of digestive tract; Z82.3 Family history of stroke; Z80.8 Family history of malignant neoplasm of other organs or systems; Z91.040 Latex allergy status; Z88.5 Allergy status to narcotic agent; Z91.048 Other nonmedicinal substance allergy status; Z79.82 Long term (current) use of aspirin; Z79.899 Other long term (current) drug therapy; Z68.20 Body mass index [BMI] 20.0-20.9, adult

== ENCOUNTER 2019-06-11 01:57 | Inpatient (IN) | payer OTHER ==
[2019-06-11] VITALS (10 sets, daily range): BP systolic 131–164; BP diastolic 58–80
[~2019-06-11] VITALS: Ht 149.9 cm; Wt 43.8 kg
[~2019-06-11 01:57] MED LIST changes: +GLUCOPHAGE500 M1 PO; -METFORMIN ER500 MG PO; +NYSTOP60 GM T
[2019-06-11 02:17] LABS: BASO % 0.2 % (0.0-1.0); EOS % 0.2 % (1.0-4.0); HEMATOCRIT 42.4 % (37.0-47.0); HEMOGLOBIN 13.4 g/dl (12.0-16.0); LYMPH # 1.5 10*3/uL (1.3-4.4); LYMPH % 14.8 % (27.0-41.0); MEAN CELL VOLUME 91.4 fl (81.0-99.0); MEAN CORPUSCULAR HGB 28.9 pg (27.0-31.0); MEAN CORPUSCULAR HGB CONC 31.6 g/dl (33.0-37.0); MONO # 0.5 10*3/uL (0.1-1.0); MONO % 5.2 % (3.0-9.0); NEUT # 7.8 10*3/uL (2.3-7.9); NEUT % 79.3 % (47.0-73.0); PLATELET COUNT AUTOMATED 247 10*3/uL (130-400); RED BLOOD COUNT 4.64 10*6/uL (4.10-5.10); RED CELL DISTRI WIDTH 14.3 % (0-14.5); WHITE BLOOD COUNT 9.8 10*3/uL (4.8-10.8)
[2019-06-11 02:33] LABS: ALBUMIN 3.2 gm/dl (3.1-4.5); ALKALINE PHOSPHATASE 60 U/L (45-117); BUN 18 mg/dl (7-24); CHLORIDE 107 mmol/L (98-107); CREATININE 1.03 mg/dL (0.55-1.02); POTASSIUM 3.5 mmol/L (3.5-5.1); SGOT/AST 21 IU/L (3-35); SGPT/ALT 15 U/L (12-78); SODIUM 142 mmol/L (136-145); TOTAL PROTEIN 7.1 gm/dL (6.4-8.2)
[2019-06-11 02:35] LABS: TROPONIN I < 0.015 ng/ml (<0.045)
[2019-06-11 03:10] LABS: INTERNATIONAL NORM RATIO 0.9 (2.0-3.5)
--- NOTE | 2019-06-11 07:28 | NUR ---
PT REPORT RECEIVED. PT RESTING WITH EYES CLOSED. NO VOICED COMPLAINTS. MEAL TRAY ORDERED. VITALS STABLE AND WITHIN NORMAL LIMITS.
--- NOTE | 2019-06-11 08:12 | NUR ---
CRITICAL TROPONIN 0.047. DR SMITH NOTIFIED. VERBAL ORDER FOR ANOTHER TROPONIN ORDER SET TO BEGIN IN 3 HOURS FROM LAST TEST.
--- NOTE | 2019-06-11 10:20 | NUR ---
FLU VACCINE HAS NEVER ARRIVED FROM PHARMACY.
--- NOTE | 2019-06-11 11:10 | NUR ---
PATIENT AND UNSURE OF HOME MEDICATIONS. WILL NEED TO CALL PHARMACY FOR MEDICATIONS.
--- NOTE | 2019-06-11 11:16 | NUR ---
A 88[facility] under the services of WILLIAM Zarate DO with a diagnosis of UNSTABLE ANGIA,CHEST PAIN. Chief complaint is CHEST PAIN. Patient arrived via stretcher from ER. Monitor applied. Initial assessment completed. Vital signs taken and recorded. WILLIAM ZARATE DO notified of admission to the unit. Orders received. See assessment for past medical history, medications and allergies. Patient and/or family oriented to unit. [facility] visitation policy reviewed. Clothing/patient valuable form completed. SHARYN NORIEGA
--- NOTE | 2019-06-11 13:21 | NUR ---
PT MEAL REQUESTS SENT TO DIETARY. NO VOICED COMPLAINTS. VITALS STABLE.
--- NOTE | 2019-06-11 13:26 | NUR ---
WAITING ON TIFFANIE MORENO TO FAX OVER PATIENTS MEDICATIONS SHE TAKES AT HOME.
--- NOTE | 2019-06-11 13:33 | NUR ---
NURSE REPORT FOR ADMISSION TO SHARYN RIVERA RN. BED ASSIGNED. PT WILL BE TRANSPORTED BY SHARYN BLOOM.
--- NOTE | 2019-06-11 13:50 | NUR ---
PT ARRIVED TO THE FLOOR VIA STRETCHER. ASSESSMENT COMPLETE. WILL VERIFY HOME MEDICATIONS. PTS AT THE BEDSIDE.
--- NOTE | 2019-06-11 15:00 | NUR ---
CALLED [facility] REGARDING PT CONSULT. SPOKE TO KIRSTEN AND ASKED HER TO PLEASE LET DR ANDREA KNOW ABOUT PTS ELEVATED TROPONIN. WAITING MIXOLOGIST BACK.
[2019-06-11] MEDS ORDERED: LISINOPRIL5 MG PO (15:06)
[2019-06-11] MEDS ORDERED: CLOPIDOGREL75 MG PO (15:08)
[2019-06-11] MEDS ORDERED: NITROSTAT0.3 M1 SL (15:15)
--- NOTE | 2019-06-11 15:26 | NUR ---
PTS HOME MEDICATIONS VERIFIED. DR DR MALDONADO NOTIFIED
--- NOTE | 2019-06-11 15:26 | NUR ---
LAB CALLED WITH CRITICAL RESULTS OF PTS TROPONIN. DR SMITH NOTIFIED. CARDIOLOGY AWARE
--- NOTE | 2019-06-11 15:27 | NUR ---
Nursing screen and occupational therapy referral received. Thank you. Ayde Peacock OTR/l
--- NOTE | 2019-06-11 18:37 | NUR ---
PT REFUSES FLU SHOT. SHE STATES "I HAVE A BAD REACTION SO I DON'T GET IT."
--- NOTE | 2019-06-11 20:47 | NUR ---
SHIFT DIRECTOR PERLA, AND LINDY AWARE OF STAYING WITH PT OVERNIGHT.
--- NOTE | 2019-06-11 23:12 | NUR ---
PRN TYLENOL ADMINISTERED PRESCRIBED FOR PT C/O HEADACHE RATED 5/10 ON THE PAIN SCALE. WILL CONTINUE TO MONITOR AND REASSESS.
[2019-06-12] VITALS: BP 158/78
--- NOTE | 2019-06-12 00:29 | NUR ---
SPOKE WITH DR MACIAS REGARDING PT C/O H/A, BLURRY VISION, AND NAUSEA. AWAITING NEW ORDERS. BP 158/78 MANUALLY, DR ROLLINS.
--- NOTE | 2019-06-12 00:59 | NUR ---
ONE TIME DOSE OF HYDRALAZINE ADMINISTERED PRESCRIBED. PRN ZOFRAN ADMINISTERED FOR PT C/O NAUSEA.
--- NOTE | 2019-06-12 02:14 | NUR ---
DR MACIAS NOTIFED OF CONTINUING H/A AND NAUSEA. NO NEW ORDERS AT THIS TIME. PT DENIES CP, IS NOT DIAPHORETIC, BP 130/60, HR 97. WILL CONTINUE TO MONITOR.
[2019-06-12 02:15] VITALS: BP 130/60
--- NOTE | 2019-06-12 02:31 | NUR ---
SPOKE WITH DR MACIAS TO CLARIFY ORDERS. WILL CARRY THEM OUT AT THIS TIME.
--- NOTE | 2019-06-12 03:07 | NUR ---
SPOKE WITH DR MACIAS REGARDING PT C/O CHEST PAIN. T.O. TAKEN TO CYCLE TROPONINS AND EKGS.
--- NOTE | 2019-06-12 06:30 | NUR ---
PT LOST IV ACCESS AT THIS TIME. IV INFILTRATED. PT RESTING ARM ELEVATED ON PILLOWS/BLANKETS AND AN ICE PACK WAS PLACED TO DECREASE SWELLING. NO SIGNS OF DISCOMFORT OR DISTRESS ARE NOTED. PT HAS NO COMPLAINTS. RESTING COMFORTABLY IN BED.
[2019-06-12 07:04] LABS: BASO % 0.4 % (0.0-1.0); EOS % 0.1 % (1.0-4.0); HEMATOCRIT 41.5 % (37.0-47.0); HEMOGLOBIN 13.1 g/dl (12.0-16.0); LYMPH # 0.8 10*3/uL (1.3-4.4); LYMPH % 6.9 % (27.0-41.0); MEAN CELL VOLUME 92.2 fl (81.0-99.0); MEAN CORPUSCULAR HGB 29.1 pg (27.0-31.0); MEAN CORPUSCULAR HGB CONC 31.6 g/dl (33.0-37.0); MEAN PLATELET VOLUME 11.3 fl (9.6-12.3); MONO # 0.5 10*3/uL (0.1-1.0); MONO % 4.6 % (3.0-9.0); NEUT # 9.8 10*3/uL (2.3-7.9); NEUT % 87.6 % (47.0-73.0); PLATELET COUNT AUTOMATED 231 10*3/uL (130-400); RED CELL DISTRI WIDTH 14.4 % (0-14.5); WHITE BLOOD COUNT 11.2 10*3/uL (4.8-10.8)
[2019-06-12 07:15] LABS: ALBUMIN 2.9 gm/dl (3.1-4.5); ALKALINE PHOSPHATASE 59 U/L (45-117); BUN 16 mg/dl (7-24); CHLORIDE 111 mmol/L (98-107); CREATININE 0.88 mg/dL (0.55-1.02); PHOSPHOROUS 2.9 mg/dL (2.5-4.9); POTASSIUM 3.8 mmol/L (3.5-5.1); SGOT/AST 23 IU/L (3-35); SGPT/ALT 15 U/L (12-78); SODIUM 143 mmol/L (136-145); TOTAL PROTEIN 6.5 gm/dL (6.4-8.2)
[2019-06-12 08:00] VITALS: BP 114/53
--- NOTE | 2019-06-12 08:39 | NUR ---
Nursing screen received and OT referral receieved. Thank you. Jyoti Raman, OTR/L
--- NOTE | 2019-06-12 08:45 | NUR ---
NEW 20G IV STARTED RADHA.
--- NOTE | 2019-06-12 11:10 | NUR ---
DR. OLMOS HERE TO SEE PATIENT. AWARE OF TROPONINS. NO NEW ORDERS CAN GO HOME FROM HIS STAND POINT PROBABLY TOMORROW.
[2019-06-12 12:00] VITALS: BP 176/81
--- NOTE | 2019-06-12 13:30 | NUR ---
LOAD TEST MECHANIC received a notice of concern over the patients well being after Hotel Recreational Facilities Manager notified LOAD TEST MECHANIC of patients being confused this morning. Per Hotel Recreational Facilities Manager patients spouse stated "I thought I was the one being admitted to the hospital." LOAD TEST MECHANIC spoke with the patient and her at bedside. Patients Stated that he is the primary caregiver for the patient. He assist the patient with all IADLs and ADLs. He stated they live in a 3 story home but reside on the 1st floor. There is a bathroom on the first floor with a shower chair for the patient. The patients stated that the patient has access to a 4 prong cane, walker, and wheel chair. The patients stated that there is a ramp going from the garage into the kitchen. The patients laundry is located in the basement but the patient does not go down the steps. He stated the patient has not driven since her CVA which was about 3-4 years ago. Patients stated he does the cooking, cleaning, and obtains all groceries. The patient stated they have a cleaning lady 2x a week but does not know the ladies name. The patients told this LOAD TEST MECHANIC that the patients has not had any recent Home Health Services and could not recall the name of the company they had last. A few moments after speaking with the patient and spouse. LOAD TEST MECHANIC witness the patients going into a different patients room and having to be reoriented to his spouses room. Due to the concern of both the patient and spouses interaction with this LOAD TEST MECHANIC and Hotel Recreational Facilities Manager, this LOAD TEST MECHANIC contacted [facility] and a referral was placed. -BAKARI Del Angel
--- NOTE | 2019-06-12 13:51 | NUR ---
Hot Box Checker in to talk to patient. Patient states lives at HOME with . There are SEVERAL steps in the home. Physician: Akua SANTIAGO [facility]acy: [facility] Home health services: STATES THEY DO BUT PT OR KNOWS COMPANY. LATER TOLD MAIL PROCESSING ASSOCIATE THEY USED TO HAVE THEM BUT NOT NOW. Patient's level of ADLs: MAX ASSIST Patient has working utilities: YES DME: WALKER, WHEEL CHAIR Follow-up physician's appointment after d/c: WILL BE MADE BY HOSPITALIST NURSE DIRECTOR ON DISCHARGE Does patient want to access PORTAL?: NO Discharge plan PT LIVES AT HOME WITH . IS AT BEDSIDE AND IS VERY CONFUSED. STATES HE IS VERY CONFUSED TODAY AND UNABLE TO GET THINGS STRAIGHT. STATES I DON'T KNOW WHAT IS WRONG WITH ME TODAY. ASKED PT ABOUT SKILLED STAY BUT STATES NO WE WANT TO GO HOME. TALKED WITH MAIL PROCESSING ASSOCIATE ABOUT MAKING A APS REPORT DUE TO HUSBANDS CONFUSION AND NOT BEING ABLE TO TAKE CARE OF SELF. WILL CONTINUE TO FOLLOW.. JESSICA SMALLWOOD
--- NOTE | 2019-06-12 14:52 | NUR ---
PHYSICAL THERAPY Nursing screen and PT referral received. Thank you Whitney Griffin, PT, DPT
--- NOTE | 2019-06-12 14:52 | NUR ---
Occupational therapy orders received and OT evaluation and POC completed in full on floor five. Patient precautions include fall risk, bed alarm, right sided weakness, and heart monitor. Per OT eval and POC, OT recommends SNF vs. SN, OT, and PT. Per discussion with patient and , they want to return home with SN, OT, and PT. Patient complexity is moderate, [id number]. Thank you for the referral. Jyoti Raman OTR/L
--- NOTE | 2019-06-12 14:58 | NUR ---
BAKARI reached out to patients son [place]. Patients son is currently residing in [place]. He stated that he is aware his father has short term memory issues. He stated that he has offered to have his parents come live with him but they refuse to move. The patients son stated that he does try to come out 3 to 6 months at a time and is wanting to come here to see them but is currently having health issues as well. He stated that there is a brother that lives in [place] but did not provide any contact information for him. BAKARI informed him of the referral to [facility]. He understood. -BAKARI Del Angel
[2019-06-12 16:00] VITALS: BP 125/55
[2019-06-12 20:00] VITALS: BP 110/44; BP 110/68
--- NOTE | 2019-06-12 21:55 | NUR ---
Patient resting quietly with no c/o discomfort. Respirations easy and regular. Vital signs stable. No overt distress. AT BEDSIDE. CALL LIGHT WITHIN REACH HISSOM,ALBERTINA
--- NOTE | 2019-06-12 23:20 | NUR ---
24 HR chart check completed.
[2019-06-13] VITALS: BP 141/55
--- NOTE | 2019-06-13 01:43 | NUR ---
Patient resting quietly with no c/o discomfort. Respirations easy and regular. Vital signs stable. No overt distress. AT BEDSIDE. CALL LIGHT WITHIN REACH HISSOM,ALBERTINA
--- NOTE | 2019-06-13 04:15 | NUR ---
PT COMPLAINING OF BURNING SENSATION IN HER CHEST. STATING IT FEELS MORE LIKE INDIGESTION. INFORMED DR MACIAS OF THIS AND HE STATED TO GIVE HER 40MG OF IV PROTONIX NOW.
--- NOTE | 2019-06-13 05:21 | NUR ---
IV started left antecubital with #22 protective cath after 1 attempts. Site prepped with Chloroprep. Sterile dressing applied. Patient tolerated procedure well. ALBERTINA ROLDAN
--- NOTE | 2019-06-13 05:21 | NUR ---
Hep Lock discontinued. Site asymptomatic. Pressure applied. Sterile dressing applied. ALBERTINA ROLDAN
--- NOTE | 2019-06-13 06:03 | NUR ---
40MG IV PROTONIX EFFECTIVE PER PT. STATES SHE DOES NOT FEEL THAT "BURNING FEELING" ANYMORE
--- NOTE | 2019-06-13 06:05 | NUR ---
BLOOD SUGAR 125
[2019-06-13 06:44] LABS: BASO % 0.2 % (0.0-1.0); EOS % 0.2 % (1.0-4.0); HEMOGLOBIN 12.6 g/dl (12.0-16.0); LYMPH # 1.6 10*3/uL (1.3-4.4); LYMPH % 17.4 % (27.0-41.0); MEAN CELL VOLUME 92.1 fl (81.0-99.0); MEAN CORPUSCULAR HGB 28.3 pg (27.0-31.0); MEAN CORPUSCULAR HGB CONC 30.7 g/dl (33.0-37.0); MEAN PLATELET VOLUME 11.3 fl (9.6-12.3); MONO # 0.5 10*3/uL (0.1-1.0); MONO % 5.4 % (3.0-9.0); NEUT % 76.6 % (47.0-73.0); PLATELET COUNT AUTOMATED 242 10*3/uL (130-400); RED BLOOD COUNT 4.45 10*6/uL (4.10-5.10); RED CELL DISTRI WIDTH 14.6 % (0-14.5); WHITE BLOOD COUNT 9.1 10*3/uL (4.8-10.8)
[2019-06-13 07:27] LABS: CHLORIDE 110 mmol/L (98-107); POTASSIUM 3.8 mmol/L (3.5-5.1); SODIUM 142 mmol/L (136-145)
--- NOTE | 2019-06-13 07:43 | NUR ---
PT RESTING IN BED. NO DISTRESS NOTED. WILL MONITOR
[2019-06-13 07:49] LABS: BUN 17 mg/dl (7-24); CREATININE 1.01 mg/dL (0.55-1.02)
[2019-06-13 08:00] VITALS: BP 122/42
--- NOTE | 2019-06-13 11:08 | NUR ---
PT AND STILL SAY THEY WANT TO GO HOME. DID AGREE TO HOME HEALTH. PT CURRENTLY HAS [facility] PT ONLY PER [facility]. WILL SEND ORDER FOR MORE SERVICES.
--- NOTE | 2019-06-13 11:20 | NUR ---
PHYSICAL THERAPY Attempted to see pt at the BS, lunch being delivered wanted to eat first prior to therapy. Will follow later in the day. Thank You Yolanda Yeager PT
[2019-06-13 12:00] VITALS: BP 128/50
--- NOTE | 2019-06-13 12:59 | NUR ---
OT NOTE PATIENT SEEN 1:1 OT THIS DATE 25 MINUTES. PATIENT IDENTIFIED BY NAME AND DATE OF . PATIENT IN BED AND DECLINED OUT OF BED ACTIVITY DUE TO FATIGUE. PATIENT AGREEABLE TO LUE STRENGTHENING THIS DATE. PATIENT COMPLETED LUE AROM ALL PLANES 7 EXERCISES X 15 REPS WITH MODERATE VERBAL CUES TECHNIQUE AND FORM FOR INCREASE INDEPENDENCE WITH UB DRESSING/GROOMING TASK. PATIENT DEMONSTRATED FAIR- ACTIVITY TOLERANCE THIS DATE. PATIENT'S PRESENT THROUGHOUT SESSION THIS DATE. PATIENT EDUCATED RUE SELF ROM TECHNIQUE FOR CONTRACTURE MANAGEMENT. CONTINUE TOWARDS PLAN OF CARE. SARAY LE/Candice
--- NOTE | 2019-06-13 15:19 | NUR ---
PHYSICAL THERAPY Physical THerapy evaluation completed. Full detials to follow. Moderate level of complexity-21155. PT will work on strenght, sitting/standing balance, transfers, Standing tolerance, Amb as approp and able to progress. Recommended SNF however pt and wish to go home and have HH therapy. Thank you. Yolanda Yeager PT
[2019-06-13 16:00] VITALS: BP 139/52
--- NOTE | 2019-06-13 18:20 | NUR ---
Discharge instructions reviewed with patient/family. Patient receptive and verbalizes understanding. Follow-up care arranged. Written instructions given to patient/family. MALENA MARTIN
--- NOTE | 2019-06-14 08:12 | NUR ---
PHYSICAL THERAPY CO-SIGN I approve of the Physical Therapy notes written above. Whitney Griffin, PT, DPT
--- NOTE | 2019-06-14 08:13 | NUR ---
OCCUPATIONAL THERAPY CO-SIGN I approve of the Occupational Therapy notes written above. PILI GONZALEZ OTR/Candice
--- NOTE | 2019-06-14 08:15 | NUR ---
REFERRAL FAXED TO [facility].
== END 2019-06-13 18:39 | disposition home health service (06) | DRG 391 ==
LOC: ED 01:57 → EDHOLD 03:28 → 5E 03:28
PROVIDERS: Emergency Medicine; Student in an Organized Health Care Education/Training Program; ADMIT Family Medicine
DX: K21.9 Gastro-esophageal reflux disease without esophagitis (principal); I50.33 Acute on chronic diastolic (congestive) heart failure; I13.0 Hypertensive heart and chronic kidney disease with heart failure and stage 1 through stage 4 chronic kidney disease, or unspecified chronic kidney disease; E44.0 Moderate protein-calorie malnutrition; I69.351 Hemiplegia and hemiparesis following cerebral infarction affecting right dominant side; J98.11 Atelectasis; I20.0 Unstable angina; M19.90 Unspecified osteoarthritis, unspecified site; E78.5 Hyperlipidemia, unspecified; E11.22 Type 2 diabetes mellitus with diabetic chronic kidney disease; N18.3 Chronic kidney disease, stage 3 (moderate); R00.0 Tachycardia, unspecified; K57.90 Diverticulosis of intestine, part unspecified, without perforation or abscess without bleeding; E11.65 Type 2 diabetes mellitus with hyperglycemia; Z88.5 Allergy status to narcotic agent; Z88.8 Allergy status to other drugs, medicaments and biological substances; Z91.041 Radiographic dye allergy status; Z91.040 Latex allergy status; Z79.82 Long term (current) use of aspirin; I25.2 Old myocardial infarction; Z79.84 Long term (current) use of oral hypoglycemic drugs; Z98.891 History of uterine scar from previous surgery; Z90.49 Acquired absence of other specified parts of digestive tract; Z82.49 Family history of ischemic heart disease and other diseases of the circulatory system; Z82.3 Family history of stroke; Z80.9 Family history of malignant neoplasm, unspecified; Z68.35 Body mass index [BMI] 35.0-35.9, adult

== ENCOUNTER 2019-07-02 14:25 | Emergency (ER) | payer OTHER ==
[~2019-07-02] VITALS: Ht 144.7 cm; Wt 40.8 kg
[~2019-07-02 14:25] MED LIST changes: +CLOPIDOGREL75 MG PO; +NITROSTAT0.3 M1 SL
== END 2019-07-02 18:20 | disposition home or self-care (01) ==
LOC: ED 14:25
DX: I12.9 Hypertensive chronic kidney disease with stage 1 through stage 4 chronic kidney disease, or unspecified chronic kidney disease (principal); E11.22 Type 2 diabetes mellitus with diabetic chronic kidney disease; N18.3 Chronic kidney disease, stage 3 (moderate); E78.5 Hyperlipidemia, unspecified; M19.90 Unspecified osteoarthritis, unspecified site; K21.9 Gastro-esophageal reflux disease without esophagitis; E78.00 Pure hypercholesterolemia, unspecified; J45.909 Unspecified asthma, uncomplicated; Z88.8 Allergy status to other drugs, medicaments and biological substances; Z88.6 Allergy status to analgesic agent; Z91.040 Latex allergy status; Z79.899 Other long term (current) drug therapy; Z79.82 Long term (current) use of aspirin; Z86.73 Personal history of transient ischemic attack (TIA), and cerebral infarction without residual deficits; Z86.718 Personal history of other venous thrombosis and embolism

== ENCOUNTER 2019-07-07 03:36 | Inpatient (IN) | payer OTHER ==
[~2019-07-07] VITALS: Ht 144.7 cm; Wt 46.0 kg
[2019-07-07] VITALS (7 sets, daily range): BP systolic 133–158; BP diastolic 46–70
[2019-07-07 03:54] LABS: BASO % 0.4 % (0.0-1.0); EOS # 0.1 10*3/uL (0.0-0.4); EOS % 0.5 % (1.0-4.0); HEMATOCRIT 42.7 % (37.0-47.0); LYMPH % 20.8 % (27.0-41.0); MEAN CORPUSCULAR HGB 29.2 pg (27.0-31.0); MEAN CORPUSCULAR HGB CONC 30.4 g/dl (33.0-37.0); MEAN PLATELET VOLUME 10.5 fl (9.6-12.3); MONO # 0.5 10*3/uL (0.1-1.0); MONO % 5.5 % (3.0-9.0); NEUT # 6.9 10*3/uL (2.3-7.9); NEUT % 72.6 % (47.0-73.0); PLATELET COUNT AUTOMATED 292 10*3/uL (130-400); RED BLOOD COUNT 4.45 10*6/uL (4.10-5.10); RED CELL DISTRI WIDTH 14.5 % (0-14.5); WHITE BLOOD COUNT 9.5 10*3/uL (4.8-10.8)
[2019-07-07 04:04] LABS: INTERNATIONAL NORM RATIO 0.9 (2.0-3.5)
[2019-07-07 04:12] LABS: ALBUMIN 3.4 gm/dl (3.1-4.5); CREATININE 1.24 mg/dL (0.55-1.02); POTASSIUM 3.8 mmol/L (3.5-5.1); TOTAL PROTEIN 7.5 gm/dL (6.4-8.2)
[2019-07-07 04:13] LABS: TROPONIN I 0.016 ng/ml (<0.045)
--- NOTE | 2019-07-07 05:54 | NUR ---
PT TO CT
--- NOTE | 2019-07-07 06:03 | NUR ---
PT RETURNED FROM CT
[2019-07-07] MEDS ORDERED: GOOD NEIGHBOR100 M2 PO (06:23)
--- NOTE | 2019-07-07 06:25 | NUR ---
A 88, admitted to , under the services of SILVER Mcneill DO with a diagnosis of CHEST PAIN. Chief complaint is CHEST PAIN. Patient arrived via ambulatory from ER. Monitor applied. Initial assessment completed. Vital signs taken and recorded. SILVER MCNEILL DO notified of admission to the unit. Orders received. See assessment for past medical history, medications and allergies. Patient and/or family oriented to unit. [facility] visitation policy reviewed. Clothing/patient valuable form completed. JEB LYLE
--- NOTE | 2019-07-07 09:00 | NUR ---
Patient resting quietly with no c/o discomfort. Respirations easy and regular. Vital signs stable. No overt distress. Continue to monitor the pt. ARIADNA WORRELL
[2019-07-07 10:29] LABS: BILIRUBIN NEGATIVE (NEGATIVE); BLOOD NEGATIVE (NEGATIVE); CLARITY CLOUDY (CLEAR); COLOR YELLOW (YELLOW); GLUCOSE NEGATIVE (NEGATIVE); KETONE NEGATIVE (NEGATIVE); LEUKO ESTERASE 3+ (NEGATIVE); NITRITE NEGATIVE (NEGATIVE); UROBILINOGEN 0.2 E.U./dl (0.2-1.0)
[2019-07-07 10:44] LABS: BACTERIA 2+; EPITHELIAL CELLS 50-55; WBC 51-100 wbc/hpf (0-5)
--- NOTE | 2019-07-07 12:45 | NUR ---
ASKED FOR THE PT'S MEDICATION LIST. HE STATES THAT HE FORGOT TO BRING IT IN. HE STATES THAT HE USES [facility] [address]. PHARMACY WILL BE CONTACTED. CONTINUE TO MONITOR THE PT.
[2019-07-07] MEDS ORDERED: COLACE100 MG PO (12:53)
--- NOTE | 2019-07-07 12:56 | NUR ---
SPOKE WITH DR JONES ABOUT PT'S MED REC BEING COMPLETED. CONTINUE TO MONITOR THE PT.
--- NOTE | 2019-07-07 19:55 | NUR ---
PATIENT LAYING IN BED WATCHING TV. AT BEDSIDE. IV FLUIDS INFUSING PER ORDER. NO DISTRESS NOTED. PATIENT VOICED NO CONCERNS. CALL LIGHT WITHIN REACH.
--- NOTE | 2019-07-07 23:38 | NUR ---
NOTIFIED DR. CRAMER THAT PATIENT IS GOING IN AND OUT OF TRIGEMINY PVCS. EKG ORDERED AND ONLY SHOWS SINUS RHYTHM. NO NEW ORDERS.
--- NOTE | 2019-07-07 23:51 | NUR ---
24 HR chart check completed.
[2019-07-08] VITALS: BP 145/32
[2019-07-08 06:36] LABS: BASO % 0.5 % (0.0-1.0); EOS # 0.1 10*3/uL (0.0-0.4); HEMOGLOBIN 11.6 g/dl (12.0-16.0); LYMPH # 1.7 10*3/uL (1.3-4.4); LYMPH % 27.6 % (27.0-41.0); MEAN CELL VOLUME 95.2 fl (81.0-99.0); MEAN CORPUSCULAR HGB 29.1 pg (27.0-31.0); MEAN CORPUSCULAR HGB CONC 30.5 g/dl (33.0-37.0); MEAN PLATELET VOLUME 10.5 fl (9.6-12.3); MONO # 0.4 10*3/uL (0.1-1.0); MONO % 5.6 % (3.0-9.0); NEUT % 64.8 % (47.0-73.0); PLATELET COUNT AUTOMATED 232 10*3/uL (130-400); RED BLOOD COUNT 3.99 10*6/uL (4.10-5.10); RED CELL DISTRI WIDTH 14.3 % (0-14.5); WHITE BLOOD COUNT 6.2 10*3/uL (4.8-10.8)
[2019-07-08 07:08] LABS: BUN 12 mg/dl (7-24); CHLORIDE 115 mmol/L (98-107); CREATININE 0.75 mg/dL (0.55-1.02); PHOSPHOROUS 3.1 mg/dL (2.5-4.9); POTASSIUM 3.8 mmol/L (3.5-5.1); SODIUM 145 mmol/L (136-145)
[2019-07-08 08:00] VITALS: BP 152/46
--- NOTE | 2019-07-08 09:21 | NUR ---
SPIT OUT IRON PILL. STATES HER PCP TOOK HER OFF OF IT DUE TO CONSTIPATION. REFUSED MEDICATION. SEE MAR.
[2019-07-08 12:00] VITALS: BP 145/56
--- NOTE | 2019-07-08 14:16 | NUR ---
Broadcast Operations Director in to talk to patient. Patient states lives at HOME with . There are SEVERAL steps in the home. Physician: Akua SANTIAGO Pharmacy: [facility] health services: [facility] Patient's level of ADLs: MODERATE ASSIST Patient has working utilities: YES DME: WALKER WHEELCHAIR Follow-up physician's appointment after d/c: WILL BE MADE BY HOSPITALIST NURSE DIRECTOR ON DISCHARGE Does patient want to access PORTAL?: NO Discharge plan PT LIVES AT HOME WITH . STATES SHE PLANS TO RETURN HOME ON DISCAHRGE WITH AND RESUMPTION OF [facility]. DENIES SHE HAS ANY OTHER NEED AT THIS TIME. WILL CONTINUE TO FOLLOW. . JESSICA SMALLWOOD
[2019-07-08 16:08] VITALS: BP 160/60
--- NOTE | 2019-07-08 19:25 | NUR ---
ARRIVED ON SHIFT, INTRODUCED TO PATIENT, WHITE BOARD UPDATED, NO NEEDS VOICED AT THID TIME. REPORT RECEIVED.
[2019-07-08 20:00] VITALS: BP 153/63
--- NOTE | 2019-07-08 22:40 | NUR ---
24 HR chart check completed.
--- NOTE | 2019-07-08 23:36 | NUR ---
patient c/o of nausea medicated with zofrcatina, spouse at bedside.
[2019-07-09] VITALS: BP 190/73
[2019-07-09 06:29] LABS: BASO % 0.5 % (0.0-1.0); EOS # 0.1 10*3/uL (0.0-0.4); EOS % 1.1 % (1.0-4.0); HEMATOCRIT 38.4 % (37.0-47.0); HEMOGLOBIN 12.1 g/dl (12.0-16.0); LYMPH % 31.6 % (27.0-41.0); MEAN CELL VOLUME 92.8 fl (81.0-99.0); MEAN CORPUSCULAR HGB 29.2 pg (27.0-31.0); MEAN CORPUSCULAR HGB CONC 31.5 g/dl (33.0-37.0); MEAN PLATELET VOLUME 10.6 fl (9.6-12.3); MONO # 0.5 10*3/uL (0.1-1.0); MONO % 7.9 % (3.0-9.0); NEUT # 3.6 10*3/uL (2.3-7.9); NEUT % 58.6 % (47.0-73.0); PLATELET COUNT AUTOMATED 221 10*3/uL (130-400); RED BLOOD COUNT 4.14 10*6/uL (4.10-5.10); RED CELL DISTRI WIDTH 14.3 % (0-14.5); WHITE BLOOD COUNT 6.2 10*3/uL (4.8-10.8)
[2019-07-09 06:49] LABS: BUN 12 mg/dl (7-24); CHLORIDE 113 mmol/L (98-107); CREATININE 0.83 mg/dL (0.55-1.02); POTASSIUM 3.8 mmol/L (3.5-5.1); SODIUM 145 mmol/L (136-145)
[2019-07-09 08:16] VITALS: BP 148/76
--- NOTE | 2019-07-09 08:21 | NUR ---
RESUME HOME HEALTH ORDER SENT TO COUNTS INCLUDE 234 BEDS AT THE [facility].
[2019-07-09 10:36] VITALS: BP 161/49
--- NOTE | 2019-07-09 10:36 | NUR ---
CALLED TO ROOM BY . STATES PT IS IN A "COMA LIKE STATE AND CANNOT BE AROUSED." VSS. OPENS EYES TO STERNAL RUB. NON VERBAL. REFUSING TO TURN. CALLED . PRIMARY TEAM TO ROOM. ORDERED TO BOLUS PT WITH NS AND CONTINUE MONITORING. BSG 135. BP 161/49, 97.4, 98% RA, 76 HR, 18R.
--- NOTE | 2019-07-09 10:49 | NUR ---
PT AND CONTINUE TO STATE PT WILL RETURN HOME ON DISCHARGE WITH RESUMPTION OF [facility]. REFUSE ANY OTHER NEEDS AT THIS TIME. WILL CONTINUE TO FOLLOW.
--- NOTE | 2019-07-09 10:51 | NUR ---
Patient approached for Occupational Therapy evaluation this date. at her side holding her hand and speaking with the brim welt sewing machine operator. voiced a concern about her level of alertness and said the doctors who were in to see her had to do a sternal rub to awaken her but she was still sleepy. Nursing reports that patient's baclofen levels were too high. OT to attempt at a later date. Ayde Peacock OTR/L
--- NOTE | 2019-07-09 11:03 | NUR ---
CHECKED ON PT. STILL STABLE. SLEEPING. NO SXS OF DISTRESS. HARD TO AROUSE BUT WAKENS WITH STERNAL RUB. VSS REMAIN STABLE. IVF GOING.
--- NOTE | 2019-07-09 11:53 | NUR ---
AWAKE, ALERT. TALKING. NO COMPLAINTS VOICED. CALL LIGHT WITHIN REACH.
[2019-07-09 12:00] VITALS: BP 129/44
--- NOTE | 2019-07-09 12:01 | NUR ---
PHYSICAL THERAPY Attempted to evaluate pt at the BS, at pt's side per nsg supply assistant and primary nurse pt lethargic miniaml responsiveness to sternal rub, per nurse checking meds may have had "too much baclofen" will follow when pt able to particpate in assessment Yolanda Yeager PT
--- NOTE | 2019-07-09 12:59 | NUR ---
AWAKE, ALERT, CARRYING ON CONVERSATION WITH FAMILY AT BEDSIDE. TOLERATED PO AM MEDS WELL. WILL MONITOR. CALL LIGHT WITHIN REACH.
[2019-07-09 16:00] VITALS: BP 144/45
--- NOTE | 2019-07-09 18:53 | NUR ---
SITTING AT BEDSIDE WITH . EATING DINNER. NO SXS OF DISTRESS NOTED. CONVERSING.
--- NOTE | 2019-07-09 19:15 | NUR ---
ARRIVED ON SHIFT, INTRODUCED TO PATIENT, SPOUSE AT BEDSIDE, SHARON OLGUIN UPDATED, NO NEEDS VOICED AT THIS TIME.
[2019-07-09 20:00] VITALS: BP 140/54
--- NOTE | 2019-07-09 22:55 | NUR ---
24 HR chart check completed.
[2019-07-10] VITALS: BP 149/57
--- NOTE | 2019-07-10 05:44 | NUR ---
PATIENT SLEPT THROUGHT NIGHT WITH SPOUSE AT BEDSIDE. RESPIRATIONS EVEN AND NON LABORED, HR REMAINED REGULAR THROUGHOUT THE NIGHT.
[2019-07-10 08:00] VITALS: BP 162/66
[2019-07-10 09:41] LABS: BASO % 0.6 % (0.0-1.0); EOS # 0.1 10*3/uL (0.0-0.4); HEMATOCRIT 42.7 % (37.0-47.0); HEMOGLOBIN 13.6 g/dl (12.0-16.0); LYMPH # 1.8 10*3/uL (1.3-4.4); LYMPH % 34.9 % (27.0-41.0); MEAN CELL VOLUME 94.1 fl (81.0-99.0); MEAN CORPUSCULAR HGB CONC 31.9 g/dl (33.0-37.0); MEAN PLATELET VOLUME 10.4 fl (9.6-12.3); MONO # 0.3 10*3/uL (0.1-1.0); MONO % 6.3 % (3.0-9.0); NEUT # 2.9 10*3/uL (2.3-7.9); PLATELET COUNT AUTOMATED 194 10*3/uL (130-400); RED BLOOD COUNT 4.54 10*6/uL (4.10-5.10); RED CELL DISTRI WIDTH 14.2 % (0-14.5); WHITE BLOOD COUNT 5.1 10*3/uL (4.8-10.8)
[2019-07-10 09:57] LABS: CHLORIDE 112 mmol/L (98-107); POTASSIUM 3.7 mmol/L (3.5-5.1); SODIUM 142 mmol/L (136-145)
[2019-07-10 10:04] LABS: BUN 11 mg/dl (7-24); CREATININE 0.78 mg/dL (0.55-1.02)
[2019-07-10 12:00] VITALS: BP 166/68
--- NOTE | 2019-07-10 13:06 | NUR ---
PT IS FOR DISCHARGE TODAY WITH [facility]. REFERRAL WAS ALREADY FAXED. WILL CONTINUE TO FOLLOW.
--- NOTE | 2019-07-10 13:22 | NUR ---
Discharge instructions reviewed with patient/family. Patient receptive and verbalizes understanding. Follow-up care arranged. Written instructions given to patient/family. MARISELA RODRIGUEZ
== END 2019-07-10 13:22 | disposition home health service (06) | DRG 562 ==
LOC: ED 03:36 → EDHOLD 05:15 → 4E 05:15
PROVIDERS: Emergency Medicine Emergency Medical Services; Family Medicine; Hospitalist; Internal Medicine; ADMIT Internal Medicine
DX: S29.011A Strain of muscle and tendon of front wall of thorax, initial encounter (principal); N17.0 Acute kidney failure with tubular necrosis; E44.0 Moderate protein-calorie malnutrition; I50.32 Chronic diastolic (congestive) heart failure; N30.00 Acute cystitis without hematuria; I69.351 Hemiplegia and hemiparesis following cerebral infarction affecting right dominant side; R00.2 Palpitations; N18.3 Chronic kidney disease, stage 3 (moderate); E11.65 Type 2 diabetes mellitus with hyperglycemia; E11.22 Type 2 diabetes mellitus with diabetic chronic kidney disease; M19.90 Unspecified osteoarthritis, unspecified site; E87.8 Other disorders of electrolyte and fluid balance, not elsewhere classified; K57.90 Diverticulosis of intestine, part unspecified, without perforation or abscess without bleeding; X58.XXXA Exposure to other specified factors, initial encounter; Y93.89 Activity, other specified; Y92.89 Other specified places as the place of occurrence of the external cause; Y99.8 Other external cause status; I25.2 Old myocardial infarction; Z90.49 Acquired absence of other specified parts of digestive tract; Z98.891 History of uterine scar from previous surgery; Z82.3 Family history of stroke; Z80.8 Family history of malignant neoplasm of other organs or systems; Z88.5 Allergy status to narcotic agent; Z88.8 Allergy status to other drugs, medicaments and biological substances; Z91.040 Latex allergy status; Z91.09 Other allergy status, other than to drugs and biological substances; Z79.899 Other long term (current) drug therapy; Z68.21 Body mass index [BMI] 21.0-21.9, adult

== ENCOUNTER 2020-02-20 13:21 | Observation (INO) | payer OTHER ==
[~2020-02-20] VITALS: Ht 149.9 cm; Wt 43.1 kg
[~2020-02-20 13:21] MED LIST changes: +COLACE100 MG PO; +GOOD NEIGHBOR100 M2 PO
[2020-02-20 13:49] VITALS: BP 156/76
[2020-02-20 14:04] LABS: BASO % 0.5 % (0.0-1.0); EOS # 0.1 10*3/uL (0.0-0.4); EOS % 0.8 % (1.0-4.0); HEMATOCRIT 38.8 % (37.0-47.0); LYMPH # 1.8 10*3/uL (1.3-4.4); LYMPH % 29.9 % (27.0-41.0); MEAN CORPUSCULAR HGB 28.8 pg (27.0-31.0); MEAN CORPUSCULAR HGB CONC 30.9 g/dl (33.0-37.0); MEAN PLATELET VOLUME 10.3 fl (9.6-12.3); MONO # 0.4 10*3/uL (0.1-1.0); MONO % 7.1 % (3.0-9.0); NEUT # 3.7 10*3/uL (2.3-7.9); NEUT % 61.4 % (47.0-73.0); PLATELET COUNT AUTOMATED 268 10*3/uL (130-400); RED BLOOD COUNT 4.17 10*6/uL (4.10-5.10)
[2020-02-20 14:16] LABS: ACT PARTIAL THROMBO TIME 24.3 SECONDS (20.0-32.1); INTERNATIONAL NORM RATIO 0.9 (2.0-3.5)
[2020-02-20 14:23] LABS: ALBUMIN 3.4 gm/dl (3.1-4.5); ALKALINE PHOSPHATASE 48 U/L (45-117); BUN 18 mg/dl (7-24); CHLORIDE 108 mmol/L (98-107); CREATININE 1.27 mg/dL (0.55-1.02); LIPASE 271 U/L (73-393); POTASSIUM 3.5 mmol/L (3.5-5.1); SGOT/AST 19 IU/L (3-35); SGPT/ALT 12 U/L (12-78); SODIUM 142 mmol/L (136-145); TOTAL PROTEIN 7.3 gm/dL (6.4-8.2)
[2020-02-20 14:27] LABS: TROPONIN I < 0.015 ng/ml (<0.045)
[2020-02-20 14:55] LABS: BILIRUBIN NEGATIVE (NEGATIVE); BLOOD NEGATIVE (NEGATIVE); CLARITY CLEAR (CLEAR); COLOR STRAW (YELLOW); GLUCOSE NEGATIVE (NEGATIVE); KETONE NEGATIVE (NEGATIVE); LEUKO ESTERASE 1+ (NEGATIVE); NITRITE NEGATIVE (NEGATIVE); SPECIFIC GRAVITY 1.025 (1.005-1.030); UROBILINOGEN 0.2 E.U./dl (0.2-1.0)
[2020-02-20 14:59] LABS: BACTERIA 1+
[2020-02-20 16:30] VITALS: BP 156/86
[2020-02-20] MEDS ORDERED: BACLOFEN5 MG PO (18:42)
[2020-02-20 19:30] VITALS: BP 158/76
[2020-02-20] MEDS ORDERED: PROTONIX20 MG PO (19:47)
[2020-02-20] MEDS ORDERED: VITAMIN D3125 MC1 PO (19:47)
[2020-02-20 20:00] VITALS: BP 144/74
[2020-02-21] VITALS: BP 134/64; BP 155/52
[2020-02-21 06:39] LABS: BASO % 0.5 % (0.0-1.0); EOS # 0.1 10*3/uL (0.0-0.4); EOS % 2.2 % (1.0-4.0); HEMATOCRIT 39.2 % (37.0-47.0); LYMPH % 33.5 % (27.0-41.0); MEAN CORPUSCULAR HGB 29.5 pg (27.0-31.0); MEAN CORPUSCULAR HGB CONC 31.4 g/dl (33.0-37.0); MEAN PLATELET VOLUME 10.2 fl (9.6-12.3); MONO # 0.5 10*3/uL (0.1-1.0); NEUT # 3.2 10*3/uL (2.3-7.9); NEUT % 54.6 % (47.0-73.0); PLATELET COUNT AUTOMATED 246 10*3/uL (130-400); RED BLOOD COUNT 4.17 10*6/uL (4.10-5.10); WHITE BLOOD COUNT 5.9 10*3/uL (4.8-10.8)
[2020-02-21 07:13] LABS: CHLORIDE 108 mmol/L (98-107); POTASSIUM 3.2 mmol/L (3.5-5.1); SODIUM 142 mmol/L (136-145)
[2020-02-21 07:32] LABS: BUN 13 mg/dl (7-24); CREATININE 0.87 mg/dL (0.55-1.02)
[2020-02-21 08:00] VITALS: BP 150/80
[2020-02-21 12:00] VITALS: BP 134/84
[2020-02-21 16:00] VITALS: BP 155/62
== END 2020-02-21 18:40 | disposition home or self-care (01) ==
LOC: ED 13:21 → EDHOLD 16:20 → 5E 16:20 → EDHOLD 17:05 → 5E 18:12
PROVIDERS: Emergency Medicine; Student in an Organized Health Care Education/Training Program; ADMIT Student in an Organized Health Care Education/Training Program
DX: G93.41 Metabolic encephalopathy (principal); R41.0 Disorientation, unspecified; N39.0 Urinary tract infection, site not specified; N17.0 Acute kidney failure with tubular necrosis; I69.351 Hemiplegia and hemiparesis following cerebral infarction affecting right dominant side; I50.30 Unspecified diastolic (congestive) heart failure; I13.0 Hypertensive heart and chronic kidney disease with heart failure and stage 1 through stage 4 chronic kidney disease, or unspecified chronic kidney disease; E11.22 Type 2 diabetes mellitus with diabetic chronic kidney disease; I50.32 Chronic diastolic (congestive) heart failure; E86.0 Dehydration; E87.8 Other disorders of electrolyte and fluid balance, not elsewhere classified; M19.90 Unspecified osteoarthritis, unspecified site; N18.3 Chronic kidney disease, stage 3 (moderate); K57.90 Diverticulosis of intestine, part unspecified, without perforation or abscess without bleeding

== ENCOUNTER 2020-09-09 13:04 | Inpatient (IN) | payer OTHER ==
[~2020-09-09] VITALS: Ht 147.3 cm; Wt 53.2 kg
[2020-09-09 13:04] VITALS: BP 122/85
[~2020-09-09 13:04] MED LIST changes: +BACLOFEN5 MG PO; +PROTONIX20 MG PO; +VITAMIN D3125 MC1 PO
[2020-09-09 14:09] LABS: BASO % 0.4 % (0.0-1.0); EOS % 0.1 % (1.0-4.0); HEMATOCRIT 33.1 % (37.0-47.0); LYMPH # 1.5 10*3/uL (1.3-4.4); LYMPH % 15.3 % (27.0-41.0); MEAN CELL VOLUME 91.4 fl (81.0-99.0); MEAN CORPUSCULAR HGB 28.2 pg (27.0-31.0); MEAN CORPUSCULAR HGB CONC 30.8 g/dl (33.0-37.0); MEAN PLATELET VOLUME 9.6 fl (9.6-12.3); MONO # 0.6 10*3/uL (0.1-1.0); MONO % 6.6 % (3.0-9.0); NEUT # 7.6 10*3/uL (2.3-7.9); NEUT % 77.4 % (47.0-73.0); PLATELET COUNT AUTOMATED 286 10*3/uL (130-400); RED BLOOD COUNT 3.62 10*6/uL (4.10-5.10); RED CELL DISTRI WIDTH 13.2 % (0-14.5); WHITE BLOOD COUNT 9.8 10*3/uL (4.8-10.8)
[2020-09-09 14:21] LABS: ACT PARTIAL THROMBO TIME 21.9 SECONDS (20.0-32.1); INTERNATIONAL NORM RATIO 0.9 (2.0-3.5)
[2020-09-09 14:25] LABS: ALBUMIN 2.7 gm/dl (3.1-4.5); ALKALINE PHOSPHATASE 68 U/L (45-117); BUN 22 mg/dl (7-24); CHLORIDE 108 mmol/L (98-107); CREATININE 1.45 mg/dL (0.55-1.02); LIPASE 200 U/L (73-393); POTASSIUM 4.6 mmol/L (3.5-5.1); SGOT/AST 13 IU/L (3-35); SGPT/ALT 13 U/L (12-78); SODIUM 139 mmol/L (136-145); TOTAL PROTEIN 6.5 gm/dL (6.4-8.2)
[2020-09-09 14:28] LABS: TROPONIN I < 0.015 ng/ml (<0.045)
[2020-09-09 16:00] VITALS: BP 170/76
[2020-09-09 18:06] VITALS: BP 107/40
[2020-09-09 21:18] VITALS: BP 170/70; BP 170/76
[2020-09-09] MEDS ORDERED: FEROSUL325 MG PO (22:36)
[2020-09-09] MEDS ORDERED: Synthroid,Levo25 MCG PO (22:38)
[2020-09-09] MEDS ORDERED: BACLOFEN5 MG PO (22:49)
[2020-09-09] MEDS ORDERED: METOPROLOL TART50 M1 PO (22:50)
[2020-09-10] VITALS: BP 134/78
[2020-09-10 00:52] LABS: BILIRUBIN Negative (Negative); BLOOD Negative (Negative); CLARITY Clear (Clear); COLOR Yellow (Yellow); GLUCOSE Trace (Negative); KETONE Trace (Negative); LEUKO ESTERASE Negative (Negative); NITRITE Negative (Negative)
[2020-09-10 01:23] LABS: BACTERIA 1+; EPITHELIAL CELLS 16-20
[2020-09-10 06:15] LABS: BASO % 0.5 % (0.0-1.0); EOS # 0.1 10*3/uL (0.0-0.4); EOS % 0.9 % (1.0-4.0); HEMATOCRIT 30.2 % (37.0-47.0); LYMPH # 2.6 10*3/uL (1.3-4.4); LYMPH % 30.9 % (27.0-41.0); MEAN CELL VOLUME 93.5 fl (81.0-99.0); MEAN CORPUSCULAR HGB 29.1 pg (27.0-31.0); MEAN CORPUSCULAR HGB CONC 31.1 g/dl (33.0-37.0); MEAN PLATELET VOLUME 9.6 fl (9.6-12.3); MONO # 0.6 10*3/uL (0.1-1.0); MONO % 7.4 % (3.0-9.0); NEUT # 5.1 10*3/uL (2.3-7.9); NEUT % 59.9 % (47.0-73.0); PLATELET COUNT AUTOMATED 265 10*3/uL (130-400); RED BLOOD COUNT 3.23 10*6/uL (4.10-5.10); RED CELL DISTRI WIDTH 13.2 % (0-14.5); WHITE BLOOD COUNT 8.5 10*3/uL (4.8-10.8)
[2020-09-10 06:42] LABS: CREATININE 1.21 mg/dL (0.55-1.02)
[2020-09-10 07:01] LABS: POTASSIUM 3.5 mmol/L (3.5-5.1)
[2020-09-10 08:00] VITALS: BP 160/82; BP 188/62
[2020-09-10 12:00] VITALS: BP 115/55
[2020-09-10 16:00] VITALS: BP 117/53
[2020-09-10 20:00] VITALS: BP 154/53
[2020-09-11] VITALS: BP 149/59
[2020-09-11 06:23] LABS: BASO % 0.2 % (0.0-1.0); EOS # 0.1 10*3/uL (0.0-0.4); EOS % 0.6 % (1.0-4.0); HEMATOCRIT 28.1 % (37.0-47.0); LYMPH % 24.3 % (27.0-41.0); MEAN CORPUSCULAR HGB 28.8 pg (27.0-31.0); MONO # 0.7 10*3/uL (0.1-1.0); MONO % 8.6 % (3.0-9.0); NEUT # 5.4 10*3/uL (2.3-7.9); NEUT % 65.9 % (47.0-73.0); PLATELET COUNT AUTOMATED 264 10*3/uL (130-400); RED BLOOD COUNT 3.02 10*6/uL (4.10-5.10); RED CELL DISTRI WIDTH 13.1 % (0-14.5); WHITE BLOOD COUNT 8.1 10*3/uL (4.8-10.8)
[2020-09-11 06:24] LABS: CREATININE 1.25 mg/dL (0.55-1.02); POTASSIUM 4.1 mmol/L (3.5-5.1)
[2020-09-11 08:00] VITALS: BP 162/64
[2020-09-11 12:00] VITALS: BP 150/56
== END 2020-09-11 16:47 | DRG 913 ==
LOC: ED 13:04 → EDHOLD 17:16 → 5E 17:16 → EDHOLD 17:16 → 5E 20:52
PROVIDERS: Emergency Medicine; Internal Medicine; ADMIT Internal Medicine; ATTEND Internal Medicine
DX: S79.911A Unspecified injury of right hip, initial encounter (principal); N17.0 Acute kidney failure with tubular necrosis; E87.2 Acidosis; E44.0 Moderate protein-calorie malnutrition; I12.0 Hypertensive chronic kidney disease with stage 5 chronic kidney disease or end stage renal disease; R65.10 Systemic inflammatory response syndrome (SIRS) of non-infectious origin without acute organ dysfunction; D64.9 Anemia, unspecified; E11.22 Type 2 diabetes mellitus with diabetic chronic kidney disease; N18.31 Chronic kidney disease, stage 3a; Z20.822 Contact with and (suspected) exposure to COVID-19; W19.XXXA Unspecified fall, initial encounter; E87.8 Other disorders of electrolyte and fluid balance, not elsewhere classified; R26.2 Difficulty in walking, not elsewhere classified; E11.65 Type 2 diabetes mellitus with hyperglycemia; M85.88 Other specified disorders of bone density and structure, other site; K57.90 Diverticulosis of intestine, part unspecified, without perforation or abscess without bleeding; Y93.89 Activity, other specified; Y92.89 Other specified places as the place of occurrence of the external cause; Y99.8 Other external cause status; Z88.5 Allergy status to narcotic agent; Z91.040 Latex allergy status; Z88.8 Allergy status to other drugs, medicaments and biological substances; Z98.891 History of uterine scar from previous surgery; Z90.49 Acquired absence of other specified parts of digestive tract; Z82.3 Family history of stroke; Z86.73 Personal history of transient ischemic attack (TIA), and cerebral infarction without residual deficits; I25.2 Old myocardial infarction; Z79.82 Long term (current) use of aspirin; Z79.899 Other long term (current) drug therapy; Z68.24 Body mass index [BMI] 24.0-24.9, adult

== ENCOUNTER 2020-09-23 16:15 | Emergency (ER) | payer OTHER ==
[~2020-09-23 16:15] MED LIST changes: +FEROSUL325 MG PO; +Synthroid,Levo25 MCG PO
== END 2020-09-23 20:04 | disposition home or self-care (01) ==
LOC: ED 16:15
DX: S70.01XA Contusion of right hip, initial encounter (principal); Z88.8 Allergy status to other drugs, medicaments and biological substances; Z91.040 Latex allergy status; Z88.5 Allergy status to narcotic agent; Z79.899 Other long term (current) drug therapy; Z90.49 Acquired absence of other specified parts of digestive tract; W18.39XA Other fall on same level, initial encounter; Y93.89 Activity, other specified; Y92.89 Other specified places as the place of occurrence of the external cause; Y99.8 Other external cause status